=== PATIENT | female | born 1935 | race Caucasian/White ===

== ENCOUNTER → 2016-11-14 | Outpatient (CLI) | payer BC, MEDICARE, OTHER ==
[~2016-11-14] MED LIST: LEVOXYL; PRLSR20
[2016-11-14 12:57] LABS: BASO % 0.6 %; BASO ABS # 0.03 K/uL (0-0.2); COMPLETE YES; EOS % 4.6 %; ESTIMATED AVERAGE GLUCOSE 123 mg/dl; HA1C FLAG Normal (Normal); HEMATOCRIT 43.3 % (37-47); LYMPH % 28.5 %; LYMPH ABS # 1.54 K/uL (1.2-3.4); MEAN CELL VOLUME 98.2 fL (80-100); MEAN CORPUSCULAR HEMOGLOBIN 32.4 pg (25-34); MEAN PLATELET VOLUME 10.3 fL (7.4-10.4); NEUT % 56.3 %; PLATELET COUNT 241 K/uL (130-400); RED BLOOD COUNT 4.41 M/uL (4.2-5.4)
[2016-11-14 13:06] LABS: ALT/SGPT 23 U/L (12-78); BLOOD UREA NITROGEN 12 mg/dl (7-18); BUN/CREATININE RATIO 12.2 (10-20); CARBON DIOXIDE 28 mmol/L (21-32); CHLORIDE 105 mmol/L (98-107); CHOLESTEROL 134 mg/dl (0-200); CREATININE 0.94 mg/dl (0.60-1.20); GLUCOSE 97 mg/dl (70-99); POTASSIUM 4.1 mmol/L (3.5-5.1); SODIUM 141 mmol/L (136-145)
[2016-11-14 13:17] LABS: ALB/GLOB RATIO 0.8 (0.9-2); ALKALINE PHOSPHATASE 105 U/L (45-117); AST/SGOT 20 U/L (15-37); CHOLESTEROL/HDL RATIO 2.4; HDL CHOLESTEROL 57 mg/dl; LDL CHOLESTEROL CALCULATED 57 mg/dl; THYROID STIMULATING HORMONE 0.534 uIu/ml (0.300-4.500); TRIGLYCERIDES 98 mg/dl (0-150); VERY LOW DENSITY LIPOPROT CALC 20 mg/dl
[2016-11-14 13:23] LABS: CALCIUM 9.1 mg/dl (8.5-10.1)
--- NOTE | 2016-11-20 08:56 | CODING QUERY MEDICAL NECESSITY ---
CQSUPPORTING DIAGNOSIS NEEDED A supporting diagnosis is required for the test/procedure performed on this patient in order for us to be reimbursed by the patient's insurance. Please provide a supporting diagnosis for the following test/procedure listed below next to the test name along with your signature. *If there is no additional diagnosis for this patient that would support the following test/procedure please document that below next to the test/procedure. Test(s)/Procedure(s) that require a supporting diagnosis: DOS 11/14/16 GLYCATED HEMOGLOBIN TEST Provider Signature: Date: Thank you Yael Heard Health Information Management Once completed, please kindly fax back to [phone] For questions please call [phone]
== END | disposition home or self-care (01) ==
LOC: C.LABPBG 07:46
PROVIDERS: ATTEND Internal Medicine
DX: E03.9 Hypothyroidism, unspecified (principal); E11.9 Type 2 diabetes mellitus without complications

== ENCOUNTER → 2018-02-20 | Emergency (ER) | payer BC | LOC: EDUNIT# 15:47 → C.EDB 15:49 ==

== ENCOUNTER 2022-05-01 14:15 | Inpatient (IN) ==
[2022-05-01] MEDS ORDERED: HALOPERIDOL LACTATE 5 MG/ML 1 ML VIAL IM STA (14:54)
[2022-05-01] MEDS ORDERED: LORazepam 1 MG/1 ML SYR IV STA (14:54)
[2022-05-01] MEDS ORDERED: SODIUM CHLORIDE 0.9% 500 ML IV SCH (15:00)
--- NOTE | 2022-05-01 15:00 | Emergency Department Note ---
General (ED) Blank Date of Service May 01, 2022 ED Visit Note I personally performed a history and examined the patient in conjunction with Dr. Smith. Additional information regarding the history, physical, assessment, and plan were discussed with supervising attending physician and are noted in their ED visit note. Resident Activity Tracking Resident Involvement: Resident Care Provided Care Provided: Adult ED
--- NOTE | 2022-05-01 15:09 | Emergency Department Note ---
Impression & Plan Acute alteration in mental status, Agitation, Edema, peripheral, Venous stasis dermatitis ED Provider Note NAME: VALARIE JACKSON AGE: 86 SEX: F : 1935 ARRIVES VIA: Ambulance INFORMANT: Patient, EMS, the patient's ED PROVIDER(S): Go Smith DO CHIEF COMPLAINT: Altered mental status HPI: The patient is an 86-year-old female who presented to the emergency department with her by ambulance. The patient has a history of underlying dementia but also has a history of depression and diabetes. The patient had a fall 2 weeks ago where she suffered an injury to her left ribs. She also hurt her left hip. She was discharged to home and has not been doing well since. Her is noticing that she has been having worsening confusion and becomes very combative at times. She is also been having a lot of swelling in her lower extremities as well as redness. The patient is not been seen by the primary care physician. The patient has not noted to have any nausea vomiting. The patient has not come planing of headache but has been complaining of left-sided hip pain as well as left-sided chest pain from the rib fracture. The patient's significant other has been giving the patient her medications and she is been compliant with her outpatient medications. There is been no new fall at this time according to the . She denies having any neck pain. There has been no reported black or bloody bowel moods. ROS: See above HPI for pertinent positives & negatives. A total of 10 systems reviewed and were otherwise negative. PAST MEDICAL HISTORY: See Below PAST SURGICAL HISTORY: See Below FAMILY HISTORY: See Below SOCIAL HISTORY: See Below HOME MEDICATIONS: See Below ALLERGIES: See Below VITALS: See Below PHYSICAL EXAMINATION: GENERAL: The patient is awake and very combative. She is yelling at the nurses. EYES: The conjunctivae are clear. The pupils are round and reactive. EARS, NOSE, MOUTH AND THROAT: The nose is without any evidence of any deformity. Mucous membranes are moist. Tongue is midline. NECK: The neck is nontender and supple. RESPIRATORY: Normal respiratory effort is noted there is no evidence of wheezing rhonchi or rales CARDIOVASCULAR: Regular rate and rhythm noted there no murmurs rubs or gallops normal S1 normal S2. GASTROINTESTINAL: The abdomen is soft. Abdomen is nontender. MUSCULOSKELETAL/EXTREMITIES: There is no evidence of gross deformity full range of motion is noted in the hips and shoulders. SKIN: There is bilateral lower extremity swelling noted. There is erythema and venous stasis changes to both legs. NEUROLOGIC: Patient is awake alert and oriented to person. She recognizes her spouse. She is moving all extremities well. She is not oriented to place or time. MEDICAL DECISION MAKING: The patient is an 86-year-old female who presented to the emergency department with her significant other for an evaluation of altered mental status. The patient does have a history of underlying dementia but recently has been having agitation and more confusion than usual. She is also become very combative. The patient was treated with medication to help with anxiety while she was in the emergency department. I discussed the patient's laboratory and radiographic studies with her as well as her significant other. Ultimately I do not feel the patient's significant other would be able to care for her at home at this current condition. The lower extremity swelling is likely secondary to decreased activity. Her case was discussed with the on-call [facility] hospitalist group. They have agreed to evaluate the patient in the emergency department for further management and disposition. Triage Nursing notes reviewed. Prior medical records reviewed Vital Signs: reviewed and remarkable for hypotension. Differential diagnosis: Infection, hypoglycemia, electrolyte abnormalities, overdose, toxicologic, cardiac sources, intracerebral event, neurologic, trauma, as well as other pathologies. ER treatment provided: See below Diagnostics interpreted by me: ECG: EKG was obtained in the emergency department. My interpretation is normal sinus rhythm at 72 bpm. There was no ectopy. There is no acute ST segment abnormalities noted. This was compared to a tracing from March 10, 2006. No changes were noted. Cardiac Monitoring: An order was placed for continuous cardiac monitoring. The monitor shows a rate of 77 bpm with sinus rhythm. Laboratory studies: As stated above and show below. Imaging studies: See below Consultation(s): I discussed this case with Dr. Beck who is on-call for the [facility]ist group. Past Med/Surg History Medical History Alzheimer's dementia Deafness in left ear Depression Diabetes mellitus Hiatal hernia Hyperlipidemia Hypothyroidism Surgical History No history of previous surgery Family History Unknown Diabetes Obstructive sleep apnea Mother Heart disease Coronary heart disease Sister Dementia Denies family history of Ovarian cancer Prostate cancer Myocardial infarction Breast cancer Lung cancer Colorectal cancer Social History Smoking Status: Unknown if ever smoked Hx Alcohol Use: No Hx Substance Use: No Preferred Language: [place] Visual Impairment: Limited Hearing Ability: Hard of Hearing Beliefs That Will Affect Care: None marital status: Current Living Situation: Spouse current occupational status: retired Feels Safe at Home: Yes Childhood Exposure to Second-Hand Smoke: No Diet Comment: regular caffeine: Yes Dental Care, Regularly: Yes Physical Activity Frequency: Does not Exercise Seatbelt Use: always Sunscreen Use: Yes Allergies Allergies Allergy/AdvReac Type Severity Reaction Status Date / Time No Known Drug Allergies Allergy Unknown Verified 05/01/22 17:39 Home Meds Home Medications Medication Instructions Recorded Confirmed cholecalciferol (vitamin D3) 25 1,000 unit PO DAILY 11/18/18 05/01/22 mcg (1,000 unit) tablet calcium carbonate 600 mg calcium 1,500 mg PO DAILY 04/01/19 05/01/22 (1,500 mg) tablet nystatin 100,000 unit/gram topical 1 applic topical BID PRN Other 04/02/21 05/01/22 powder (Nystop) donepezil 10 mg tablet 10 mg PO HS 05/01/22 05/01/22 multivitamin 1 tab PO DAILY 05/01/22 05/01/22 Previous Rx's Medication Instructions Recorded atorvastatin 20 mg tablet 20 mg PO DAILY #90 tabs 11/21/21 levothyroxine 88 mcg tablet 88 mcg PO DAILY #90 tabs 11/21/21 citalopram 40 mg tablet 40 mg PO DAILY #90 tabs 02/10/22 lorazepam 0.5 mg tablet 0.5 mg PO DAILY PRN anxiety #90 02/19/22 tabs metformin 500 mg tablet,extended 500 mg PO 3XWK #90 tabs 04/17/22 release 24 hr tramadol 50 mg tablet (Ultram) 50 mg PO Q6H PRN pain #30 tabs 05/01/22 Results & Data (ED) Vital Signs Vital Signs - 24 hr 05/01/22 14:04 10/27/22 14:54 05/01/22 14:52 Temperature 36.4 C L Temperature Source Oral Pulse Rate 72 110 H 74 Pulse Rate from SpO2 Sensor 73 Pulse Rhythm Regular Pulse Strength Normal Respiratory Rate 20 22 12 Respiratory Effort / Characteristics Non-Labored Respiratory Depth Normal Respiratory Pattern Regular Blood Pressure 134/49 L Blood Pressure Mean 77 Blood Pressure Position Lying Pulse Oximetry 95 98 92 Oxygen Delivery Method Room Air Room Air Sepsis Recent Fever Within 48 Hours No Sepsis New/Unexplained Change in Mental Status Yes Sepsis Action Taken by Nursing No Action Required 05/01/22 15:00 05/01/22 15:01 05/01/22 15:01 Temperature Temperature Source Pulse Rate 70 84 Pulse Rate from SpO2 Sensor Pulse Rhythm Pulse Strength Respiratory Rate 14 17 Respiratory Effort / Characteristics Respiratory Depth Respiratory Pattern Blood Pressure 135/68 Blood Pressure Mean 90 Blood Pressure Position Pulse Oximetry Oxygen Delivery Method Sepsis Recent Fever Within 48 Hours Sepsis New/Unexplained Change in Mental Status Sepsis Action Taken by Nursing 05/01/22 15:30 05/01/22 16:00 05/01/22 16:01 Temperature Temperature Source Pulse Rate 76 76 77 Pulse Rate from SpO2 Sensor 75 75 Pulse Rhythm Pulse Strength Respiratory Rate 14 14 22 Respiratory Effort / Characteristics Respiratory Depth Respiratory Pattern Blood Pressure Blood Pressure Mean Blood Pressure Position Pulse Oximetry 92 92 Oxygen Delivery Method Sepsis Recent Fever Within 48 Hours Sepsis New/Unexplained Change in Mental Status Sepsis Action Taken by Nursing 05/01/22 16:01 Temperature Temperature Source Pulse Rate Pulse Rate from SpO2 Sensor Pulse Rhythm Pulse Strength Respiratory Rate Respiratory Effort / Characteristics Respiratory Depth Respiratory Pattern Blood Pressure 100/59 L Blood Pressure Mean 72 Blood Pressure Position Pulse Oximetry Oxygen Delivery Method Sepsis Recent Fever Within 48 Hours Sepsis New/Unexplained Change in Mental Status Sepsis Action Taken by [facility] Medications Current Medication List: was personally reviewed by me Laboratory Data Attestation: I reviewed the patient's lab results. Result diagrams: 05/01/22 15:22 05/01/22 15:22 Lab Results 05/01/22 05/01/22 05/01/22 Range/Units 14:45 15:22 15:22 WBC 6.04 (4.8-10.8) K/ul RBC 3.64 L (3.93-5.22) M/uL Hgb 11.7 L (12.0-16.0) g/dl Hct 35.5 (34.1-44.9) % MCV 97.5 (80.0-100.0) fL MCH 32.1 (25.0-34.0) pg MCHC 33.0 (32.0-36.0) g/dL RDW Std Deviation 50.3 H (36.4-46.3) fL RDW Coeff of Tom 14.0 (11.5-14.5) % Plt Count 195 (130-400) K/uL MPV 9.1 L (9.4-12.3) fL Immature Gran % (Auto) 0.2 % Neut % (Auto) 65.3 % Lymph % (Auto) 21.2 % [place] % (Auto) 10.3 % Eos % (Auto) 2.3 % Baso % (Auto) 0.7 % Neut # (Auto) 3.95 (1.4-6.5) K/uL Lymph # (Auto) 1.28 (1.2-3.4) K/uL [place] # (Auto) 0.62 (0.24-0.82) K/uL Eos # (Auto) 0.14 (0-0.50) K/uL Baso # (Auto) 0.04 (0-0.2) K/uL Immature Gran # (Auto) 0.01 (0.00-0.02) K/uL PT 11.1 (9.0-12.0) Seconds INR 1.0 (0.9-1.1) APTT 26.5 (21.0-31.0) Seconds PTT Ratio 1.0 Sodium (136-145) mmol/L Potassium (3.5-5.1) mmol/L Chloride (98-107) mmol/L Carbon Dioxide (21-32) mmol/L Anion Gap (3-11) BUN (6-23) mg/dl Creatinine (0.6-1.2) mg/dl Est Cr Clr Drug Dosing ml/min Est GFR ( Amer) ml/min Est GFR (Non-Af Amer) ml/min BUN/Creatinine Ratio (10-20) Glucose (70-99(Fasting)) mg/dl Calcium (8.5-10.1) mg/dl Magnesium (1.7-2.4) mg/dl Total Bilirubin (0.2-1.0) mg/dl AST (13-39) U/L ALT (7-52) U/L Alkaline Phosphatase (34-104) U/L Total Creatine Kinase (26-192) U/L Troponin I High Sens (0-14) pg/ml B-Natriuretic Peptide (0-100) pg/ml Total Protein (6.0-8.3) gm/dl Albumin (3.4-5.0) gm/dl Globulin (2.5-4.0) gm/dl Albumin/Globulin Ratio (0.9-2) TSH (0.300-4.500) uIu/ml Free T4 (0.61-1.60) ng/dl Urine Color Yellow Urine Appearance Clear (Clear) Urine pH 7.5 (4.5-7.5) Ur Specific [place] 1.023 (1.000-1.030) Urine Protein Negative (Negative) Urine Glucose (UA) 1+ H (Negative) Urine Ketones Negative (Negative) Urine Blood Negative (Negative) Urine Nitrite Negative (Negative) Urine Bilirubin Negative (Negative) Urine Urobilinogen Negative (Negative) Ur Leukocyte Esterase Negative (Negative) SARS-CoV-2, RNA, NAAT (NEGATIVE) 05/01/22 05/01/22 05/01/22 Range/Units 15:22 15:22 15:22 WBC (4.8-10.8) K/ul RBC (3.93-5.22) M/uL Hgb (12.0-16.0) g/dl Hct (34.1-44.9) % MCV (80.0-100.0) fL MCH (25.0-34.0) pg MCHC (32.0-36.0) g/dL RDW Std Deviation (36.4-46.3) fL RDW Coeff of Tom (11.5-14.5) % Plt Count (130-400) K/uL MPV (9.4-12.3) fL Immature Gran % (Auto) % Neut % (Auto) % Lymph % (Auto) % [place] % (Auto) % Eos % (Auto) % Baso % (Auto) % Neut # (Auto) (1.4-6.5) K/uL Lymph # (Auto) (1.2-3.4) K/uL [place] # (Auto) (0.24-0.82) K/uL Eos # (Auto) (0-0.50) K/uL Baso # (Auto) (0-0.2) K/uL Immature Gran # (Auto) (0.00-0.02) K/uL PT (9.0-12.0) Seconds INR (0.9-1.1) APTT (21.0-31.0) Seconds PTT Ratio Sodium 138 (136-145) mmol/L Potassium 4.1 (3.5-5.1) mmol/L Chloride 102 (98-107) mmol/L Carbon Dioxide 32 (21-32) mmol/L Anion Gap 4 (3-11) BUN 10 (6-23) mg/dl Creatinine 0.91 (0.6-1.2) mg/dl Est Cr Clr Drug Dosing 53.3 ml/min Est GFR ( Amer) 67.1 ml/min Est GFR (Non-Af Amer) 57.9 ml/min BUN/Creatinine Ratio 11.0 (10-20) Glucose 82 (70-99(Fasting)) mg/dl Calcium 8.6 (8.5-10.1) mg/dl Magnesium 2.1 (1.7-2.4) mg/dl Total Bilirubin 0.5 (0.2-1.0) mg/dl AST 16 (13-39) U/L ALT 12 (7-52) U/L Alkaline Phosphatase 120 H (34-104) U/L Total Creatine Kinase 59 (26-192) U/L Troponin I High Sens 5.1 (0-14) pg/ml B-Natriuretic Peptide 46 (0-100) pg/ml Total Protein 6.5 (6.0-8.3) gm/dl Albumin 3.3 L (3.4-5.0) gm/dl Globulin 3.2 (2.5-4.0) gm/dl Albumin/Globulin Ratio 1.0 (0.9-2) TSH 7.114 H (0.300-4.500) uIu/ml Free T4 0.81 (0.61-1.60) ng/dl Urine Color Urine Appearance (Clear) Urine pH (4.5-7.5) Ur Specific [place] (1.000-1.030) Urine Protein (Negative) Urine Glucose (UA) (Negative) Urine Ketones (Negative) Urine Blood (Negative) Urine Nitrite (Negative) Urine Bilirubin (Negative) Urine Urobilinogen (Negative) Ur Leukocyte Esterase (Negative) SARS-CoV-2, RNA, NAAT (NEGATIVE) 05/01/22 Range/Units Unknown WBC (4.8-10.8) K/ul RBC (3.93-5.22) M/uL Hgb (12.0-16.0) g/dl Hct (34.1-44.9) % MCV (80.0-100.0) fL MCH (25.0-34.0) pg MCHC (32.0-36.0) g/dL RDW Std Deviation (36.4-46.3) fL RDW Coeff of Tom (11.5-14.5) % Plt Count (130-400) K/uL MPV (9.4-12.3) fL Immature Gran % (Auto) % Neut % (Auto) % Lymph % (Auto) % [place] % (Auto) % Eos % (Auto) % Baso % (Auto) % Neut # (Auto) (1.4-6.5) K/uL Lymph # (Auto) (1.2-3.4) K/uL [place] # (Auto) (0.24-0.82) K/uL Eos # (Auto) (0-0.50) K/uL Baso # (Auto) (0-0.2) K/uL Immature Gran # (Auto) (0.00-0.02) K/uL PT (9.0-12.0) Seconds INR (0.9-1.1) APTT (21.0-31.0) Seconds PTT Ratio Sodium (136-145) mmol/L Potassium (3.5-5.1) mmol/L Chloride (98-107) mmol/L Carbon Dioxide (21-32) mmol/L Anion Gap (3-11) BUN (6-23) mg/dl Creatinine (0.6-1.2) mg/dl Est Cr Clr Drug Dosing ml/min Est GFR ( Amer) ml/min Est GFR (Non-Af Amer) ml/min BUN/Creatinine Ratio (10-20) Glucose (70-99(Fasting)) mg/dl Calcium (8.5-10.1) mg/dl Magnesium (1.7-2.4) mg/dl Total Bilirubin (0.2-1.0) mg/dl AST (13-39) U/L ALT (7-52) U/L Alkaline Phosphatase (34-104) U/L Total Creatine Kinase (26-192) U/L Troponin I High Sens (0-14) pg/ml B-Natriuretic Peptide (0-100) pg/ml Total Protein (6.0-8.3) gm/dl Albumin (3.4-5.0) gm/dl Globulin (2.5-4.0) gm/dl Albumin/Globulin Ratio (0.9-2) TSH (0.300-4.500) uIu/ml Free T4 (0.61-1.60) ng/dl Urine Color Urine Appearance (Clear) Urine pH (4.5-7.5) Ur Specific [place] (1.000-1.030) Urine Protein (Negative) Urine Glucose (UA) (Negative) Urine Ketones (Negative) Urine Blood (Negative) Urine Nitrite (Negative) Urine Bilirubin (Negative) Urine Urobilinogen (Negative) Ur Leukocyte Esterase (Negative) SARS-CoV-2, RNA, NAAT NEGATIVE (NEGATIVE) Administered Medications Discontinued Medications Haloperidol Lactate (Haloperidol Lactate 5 Mg/Ml 1 Ml Vial) 5 mg IM NOW STA Stop: 05/01/22 14:55 Last Admin: 05/01/22 15:27 Dose: 5 mg Documented By: SAY Haloperidol Lactate (Haloperidol Lactate 5 Mg/Ml 1 Ml Vial) Confirm Administered Dose 5 mg .ROUTE .STK-MED ONE Stop: 05/01/22 17:42 Last Admin: 05/01/22 17:43 Dose: 5 mg Documented By: JOSE FRANCISCO Sodium Chloride (Nss) 500 mls @ 999 mls/hr IV .Q31M VERONICA Stop: 05/01/22 15:30 Last Infusion: 05/01/22 16:37 Dose: 0 mls/hr Documented By: Admin: 05/01/22 15:25 Dose: 999 mls/hr Documented By: SAY Lorazepam (Lorazepam 2 Mg/2 Ml Syr) 0.5 mg IV NOW STA; Protocol Stop: 05/01/22 14:55 Last Admin: 05/01/22 15:24 Dose: 0.5 mg Documented By: SAY Lorazepam (Lorazepam 2 Mg/2 Ml Syr) Confirm Administered Dose 2 mg .ROUTE .[employer]- MED ONE Stop: 05/01/22 17:42 Last Admin: 05/01/22 17:42 Dose: 1 mg Documented By: JOSE FRANCISCO Imaging Data Radiologist's Impression: Cervical Spine CT 05/01/22 14:54 CT cervical spine wo con CT DOSE: 1047.80 mGy.cm CLINICAL HISTORY: 86 years-old Female with fall. Acute head and neck injury status post fall COMPARISON: Head CT of same day TECHNIQUE: Multiple axial CT images of the cervical spine were obtained without contrast. A dose lowering technique was utilized adhering to the principles of ALARA. FINDINGS: 3 mm anterolisthesis C7 on T1, likely degenerative. No acute fracture or subluxation identified. Elongated bilateral styloid processes, left greater than right. Minimal air within the posterior lateral tissues of the upper thoracic spine may be related to the degenerative changes. The cervical soft tissues appear unremarkable. Calcified plaque of the carotid arteries. Calcifications of the parotid glands. The visualized lung apices appear clear. IMPRESSION: No acute cervical spine fracture or subluxation is identified. ACT 112: Negative or not required by law. The above report was generated using voice recognition software. It may contain grammatical, syntax or spelling errors. Electronically signed by: Arnold Sullivan M.D. 05/01/2022 4:40 PM Chest X-Ray 05/01/22 14:54 XR chest 1V not portable HISTORY: 86 years-old Female weakness acute chest trauma status post fall COMPARISON: Chest and rib radiographs 04/21/2022 TECHNIQUE: AP view of the chest FINDINGS: Cardiac silhouette is enlarged. Unchanged with opacity along the left heart border suggestive of a prominent epicardial fat pad. Moderate sized hiatal hernia. Atherosclerosis of the aorta. No pneumothorax, large pleural effusion, overt pulmonary edema or airspace consolidation typical for pneumonia. Degenerative changes of the shoulders and spine. Cholecystectomy. Healed fractures of the lateral left fifth through seventh ribs redemonstrated. IMPRESSION: 1. Cardiomegaly without acute process. 2. Acute fractures of the left fifth through seventh ribs again noted. No pneumothorax. ACT 112: Negative or not required by law. The above report was generated using voice recognition software. It may contain grammatical, syntax or spelling errors. Electronically signed by: Arnold Sullivan M.D. 05/01/2022 5:[address] 05/01/22 14:54 CT SCAN OF THE BRAIN WITHOUT IV CONTRAST CLINICAL HISTORY: Change in mental status. COMPARISON STUDY: No priors. TECHNIQUE: Unenhanced axial CT scan of the brain is performed from the vertex to the skull base. A dose lowering technique was utilized adhering to the principles of ALARA. FINDINGS: Brain parenchyma: There is age-related involutional change noting advanced subcortical and periventricular microangiopathic disease. There is no hemorrhage, mass effect, or evidence of acute territorial ischemia by CT criteria. 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 Jimenes-white matter differentiation is preserved. No extra-axial fluid collection is seen. Ventricles, sulci, cisterns: Prominent secondary to involutional change. Intracranial vasculature: There is atherosclerotic calcification of the cavernous carotid and vertebral arteries. Calvarium: Unremarkable. Sinuses and mastoids: There is trace mucosal thickening within the right maxillary antrum. The remaining paranasal sinuses are clear. The mastoid air cells are well pneumatized. Orbits: The bony orbits are grossly intact. IMPRESSION: There is no hemorrhage, mass effect, or evidence of acute territorial ischemia by CT criteria. ACT 112: Negative or not required by law. Electronically signed by: Cisco Allen M.D. 05/01/2022 4:27 PM Hip/Pelvis X-Ray 05/01/22 14:54 SINGLE VIEW PELVIS; 2 VIEWS LEFT HIP CLINICAL HISTORY: Fall with left hip pain. FINDINGS: An AP view of the pelvis with AP and frog-leg views of the left hip are compared to study dated 04/21/2022. The skeletal structures are osteopenic. There is no radiographic evidence of acute fracture involving the hips or bony pelvis. Mild degenerative joint space narrowing is noted in both hips. Degenerative sclerosis is seen in the sacroiliac joints. The overlying soft tissues are within normal limits. Phleboliths are seen in the pelvis. Lumbosacral spondylosis is partially visualized. IMPRESSION: No acute bony abnormality is identified. No change from 04/21/2022. Electronically signed by: Cisco Allen M.D. 05/01/2022 4:46 PM Discharge Plan Visit Data Chief Complaint: Fall ED Provider: Luis,Go R ED Midlevel Provider: Bismark Cervantes Discharge Problem: Acute alteration in mental status, Agitation, Edema, peripheral, Venous stasis dermatitis Patient Disposition: Being Evaluated by Hospitalist Forms Stand Alone Forms: My [facility] Prescriptions Prescriptions: No Action atorvastatin 20 mg tablet 20 mg PO DAILY Qty: 90 3RF levothyroxine 88 mcg tablet 88 mcg PO DAILY Qty: 90 3RF citalopram 40 mg tablet 40 mg PO DAILY Qty: 90 3RF lorazepam 0.5 mg tablet 0.5 mg PO DAILY PRN (Reason: anxiety) Qty: 90 0RF metformin 500 mg tablet extended release 24 hr 500 mg PO 3XWK Qty: 90 3RF tramadol [Ultram] 50 mg tablet 50 mg PO Q6H PRN (Reason: pain) Qty: 30 0RF nystatin [Nystop] 100,000 unit/gram powder 1 applic TOP BID PRN (Reason: Other) cholecalciferol (vitamin D3) 1,000 unit tablet 1,000 unit PO DAILY calcium carbonate 600 mg calcium (1,500 mg) tablet 1,500 mg PO DAILY donepezil 10 mg tablet 10 mg PO HS Rx Instructions: TAKE 1 TABLET BY MOUTH DAILY multivitamin Tablet 1 tab PO DAILY Referrals Referrals: Marcos Richardson MD [Primary Care Provider] -
[2022-05-01 15:13] LABS: Appearance Urine Clear (Clear); Bilirubin Urine Negative (Negative); Blood Urine Negative (Negative); Color Urine Yellow; Glucose Urine UA 1+ (Negative); Ketones Urine Negative (Negative); Leukocyte Esterase Urine Negative (Negative); Nitrite Urine Negative (Negative); Protein Urine Negative (Negative); Specific Gravity Urine 1.023 (1.000-1.030); Urobilinogen Urine Negative (Negative); pH Urine 7.5 (4.5-7.5)
[2022-05-01 15:33] LABS: Basophils # (auto) 0.04 K/uL (0-0.2); Basophils % (auto) 0.7 %; Eosinophils # (auto) 0.14 K/uL (0-0.50); Eosinophils % (auto) 2.3 %; Hematocrit (blood only) 35.5 % (34.1-44.9); Hemoglobin 11.7 g/dl (12.0-16.0); Immature Granulocytes # (auto) 0.01 K/uL (0.00-0.02); Immature Granulocytes % (auto) 0.2 %; Lymphocytes # (auto) 1.28 K/uL (1.2-3.4); Lymphocytes % (auto) 21.2 %; Mean Corpuscular Hemoglobin 32.1 pg (25.0-34.0); Mean Corpuscular Volume 97.5 fL (80.0-100.0); Mean Platelet Volume 9.1 fL (9.4-12.3); Monocytes # (auto) 0.62 K/uL (0.24-0.82); Monocytes % (auto) 10.3 %; Neutrophils # (auto) 3.95 K/uL (1.4-6.5); Neutrophils % (auto) 65.3 %; Platelet Count 195 K/uL (130-400); RDW Standard Deviation 50.3 fL (36.4-46.3); Red Blood Count 3.64 M/uL (3.93-5.22); White Blood Count 6.04 K/ul (4.8-10.8)
[2022-05-01 15:52] LABS: Partial Thromboplastin Time 26.5 Seconds (21.0-31.0); Prothrombin Time 11.1 Seconds (9.0-12.0)
[2022-05-01 15:59] LABS: Albumin Level 3.3 gm/dl (3.4-5.0); Bilirubin,Total 0.5 mg/dl (0.2-1.0); Calcium 8.6 mg/dl (8.5-10.1); Creatinine Clr Calc Pharmacy 53.3 ml/min; Est GFR (African American) 67.1 ml/min; Est GFR (Non-African American) 57.9 ml/min; Globulin 3.2 gm/dl (2.5-4.0); Magnesium 2.1 mg/dl (1.7-2.4); Potassium 4.1 mmol/L (3.5-5.1); Total Protein 6.5 gm/dl (6.0-8.3)
[2022-05-01 16:04] LABS: Troponin I High Sensitivity 5.1 pg/ml (0-14)
[2022-05-01 16:11] LABS: Thyroid Stimulating Hormone 7.114 uIu/ml (0.300-4.500)
--- NOTE | 2022-05-01 16:32 | CT Scan Report ---
CT SCAN OF THE BRAIN WITHOUT IV CONTRAST CLINICAL HISTORY: Change in mental status. COMPARISON STUDY: No priors. TECHNIQUE: Unenhanced axial CT scan of the brain is performed from the vertex to the skull base. A do se lowering technique was utilized adhering to the principles of ALARA. FINDINGS: Brain parenchyma: There is age-related involutional change noting advanced subcortical and periventri cular microangiopathic disease. There is no hemorrhage, mass effect, or evidence of acute territorial ischemia by CT criteria. 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 Jimenes-white matter di fferentiation is preserved. No extra-axial fluid collection is seen. Ventricles, sulci, cisterns: Prominent secondary to involutional change. Intracranial vasculature: There is atherosclerotic calcification of the cavernous carotid and vertebr al arteries. Calvarium: Unremarkable. Sinuses and mastoids: There is trace mucosal thickening within the right maxillary antrum. The remain ing paranasal sinuses are clear. The mastoid air cells are well pneumatized. Orbits: The bony orbits are grossly intact. IMPRESSION: There is no hemorrhage, mass effect, or evidence of acute territorial ischemia by CT rhys arce. ACT 112: Negative or not required by law. Electronically signed by: Cisco Allen M.D. 05/01/2022 4:27 PM
--- NOTE | 2022-05-01 16:41 | CT Scan Report ---
CT cervical spine wo con CT DOSE: 1047.80 mGy.cm CLINICAL HISTORY: 86 years-old Female with fall. Acute head and neck injury status post fall COMPARISON: Head CT of same day TECHNIQUE: Multiple axial CT images of the cervical spine were obtained without contrast. A dose low ering technique was utilized adhering to the principles of ALARA. FINDINGS: 3 mm anterolisthesis C7 on T1, likely degenerative. No acute fracture or subluxation identi fied. Elongated bilateral styloid processes, left greater than right. Minimal air within the posterio r lateral tissues of the upper thoracic spine may be related to the degenerative changes. The cervical soft tissues appear unremarkable. Calcified plaque of the carotid arteries. Calcificati ons of the parotid glands. The visualized lung apices appear clear. IMPRESSION: No acute cervical spine fracture or subluxation is identified. ACT 112: Negative or not required by law. The above report was generated using voice recognition software. It may contain grammatical, syntax o r spelling errors. Electronically signed by: Arnold Sullivan M.D. 05/01/2022 4:40 PM
--- NOTE | 2022-05-01 16:47 | XRay Report ---
SINGLE VIEW PELVIS; 2 VIEWS LEFT HIP CLINICAL HISTORY: Fall with left hip pain. FINDINGS: An AP view of the pelvis with AP and frog-leg views of the left hip are compared to study d ated 04/21/2022. The skeletal structures are osteopenic. There is no radiographic evidence of acute f racture involving the hips or bony pelvis. Mild degenerative joint space narrowing is noted in both h ips. Degenerative sclerosis is seen in the sacroiliac joints. The overlying soft tissues are within n ormal limits. Phleboliths are seen in the pelvis. Lumbosacral spondylosis is partially visualized. IMPRESSION: No acute bony abnormality is identified. No change from 04/21/2022. Electronically signed by: Cisco Allen M.D. 05/01/2022 4:46 PM
[2022-05-01 16:49] LABS: T4 Free Thyroxine 0.81 ng/dl (0.61-1.60)
--- NOTE | 2022-05-01 17:10 | XRay Report ---
XR chest 1V not portable HISTORY: 86 years-old Female weakness acute chest trauma status post fall COMPARISON: Chest and rib radiographs 04/21/2022 TECHNIQUE: AP view of the chest FINDINGS: Cardiac silhouette is enlarged. Unchanged with opacity along the left heart border suggestive of a pr ominent epicardial fat pad. Moderate sized hiatal hernia. Atherosclerosis of the aorta. No pneumothor ax, large pleural effusion, overt pulmonary edema or airspace consolidation typical for pneumonia. De generative changes of the shoulders and spine. Cholecystectomy. Healed fractures of the lateral left fifth through seventh ribs redemonstrated. IMPRESSION: 1. Cardiomegaly without acute process. 2. Acute fractures of the left fifth through seventh ribs again noted. No pneumothorax. ACT 112: Negative or not required by law. The above report was generated using voice recognition software. It may contain grammatical, syntax o r spelling errors. Electronically signed by: Arnold Sullivan M.D. 05/01/2022 5:08 PM
--- NOTE | 2022-05-01 17:23 | History & Physical Report ---
Date of Service May 01, 2022 Assessment & Plan (1) Alzheimer's dementia: Plan: - Continue donepezil. - PT/OT will evaluate patient. - Case management consulted on admission for placement. - 11 sitter ordered. - Melatonin scheduled at night. - 1 mg Ativan Q6h prn for behavioral issues. -Patient require multiple doses of Haldol and Ativan in ED due to impulsive behavior. (2) Left rib fracture: Plan: - Left ribs 5 through 7 fractures 10 days ago, seen again on imaging without evidence of pneumothorax. - Pain control: Tylenol, tramadol, heat, lidocaine patches. - Incentive spirometry every few hours at least if patient cooperative. (3) Depression: Plan: - Continue citalopram. (4) Diabetes mellitus: Plan: - Takes metformin 3x weekly, will hold while admitted and defer on Accu- Cheks/SSI as her presenting sugar was 84 and frequent glucose checks may agitate patient. (5) Hypothyroidism: Plan: - Continue levothyroxine. (6) Lower extremity edema: Plan: - b/l LE edema, reports it is new over the past week or so. - Will start on low dose Lasix to see if this improves. - Echo in AM. - BNP 46. Plan - Admit to med/surg. - SCDs, Lovenox for VTE ppx. - Full Code. History of Present Illness Chief Complaint: confusion, combative behavior at home x 1 week Primary Care Provider: Marcos Richardson MD Michelle Pino is an 86-year-old female with a past medical history significant for dementia, hypothyroidism, depression, and diabetes is presenting today with her due to worsening mental status. She had a fall 10 days ago on 04/21 and was evaluated in our ED then. Imaging was notable for 6, 7, possibly eighth rib fracture on the left side, no pneumothorax. No other injuries and labs were stable, therefore patient was discharged home with tramadol for pain control. Since then she has been increasingly confused and combative, and feels that he can no longer care for her. There have been no new falls and patient is not complaining of any head or neck pain, fever/chills, chest pain, palpitations, shortness of breath, abdominal, nausea, vomiting. No history os able to be obtained as patient is severely confused, per has been her baseline recently. Upon presentation to the ED, her vital signs have been within normal limits and stable, BP on lower side. She has anemia of 11.7 which appears new from otherwise labs unremarkable, renal function at baseline, without electrolyte abnormalities or evidence of infection. TSH elevated at 7, however free T4 within normal limits. Urine does not appear infected, and she is negative for COVID. C-spine and head CT, as well as CXR and hip/pelvis x-ray obtained which were all unremarkable for acute fractures, subluxation or other acute process. Left rib fractures 5 through 7 are again noted, without pneumothorax. Allergies Allergy/AdvReac Type Severity Reaction Status Date / Time No Known Drug Allergies Allergy Unknown Verified 05/01/22 17:39 Home Medications Medication Instructions Recorded Confirmed Type cholecalciferol (vitamin D3) 25 1,000 unit PO DAILY 11/18/18 05/01/22 History mcg (1,000 unit) tablet calcium carbonate 600 mg calcium 1,500 mg PO DAILY 04/01/19 05/01/22 History (1,500 mg) tablet nystatin 100,000 unit/gram topical 1 applic topical BID PRN Other 04/02/21 05/01/22 History powder (Nystop) atorvastatin 20 mg tablet 20 mg PO DAILY #90 tabs 11/21/21 05/01/22 Rx levothyroxine 88 mcg tablet 88 mcg PO DAILY #90 tabs 11/21/21 05/01/22 Rx citalopram 40 mg tablet 40 mg PO DAILY #90 tabs 02/10/22 05/01/22 Rx lorazepam 0.5 mg tablet 0.5 mg PO DAILY PRN anxiety #90 02/19/22 05/01/22 Rx tabs metformin 500 mg tablet,extended 500 mg PO 3XWK #90 tabs 04/17/22 05/01/22 Rx release 24 hr donepezil 10 mg tablet 10 mg PO HS 05/01/22 05/01/22 History multivitamin 1 tab PO DAILY 05/01/22 05/01/22 History tramadol 50 mg tablet (Ultram) 50 mg PO Q6H PRN pain #30 tabs 05/01/22 Rx Past Med/Surg History Medical History Alzheimer's dementia Deafness in left ear Depression Diabetes mellitus Hiatal hernia Hyperlipidemia Hypothyroidism Surgical History No history of previous surgery Family History Unknown Diabetes Obstructive sleep apnea Mother Heart disease Coronary heart disease Sister Dementia Denies family history of Ovarian cancer Prostate cancer Myocardial infarction Breast cancer Lung cancer Colorectal cancer Social History Smoking Status: Unknown if ever smoked Preferred Language: Czech Communication Ability: Impaired Communication Ability Comment: pt conused Visual Impairment: Limited Hearing Ability: Hard of Hearing 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 Beliefs That Will Affect Care: None marital status: Current Living Situation: Spouse current occupational status: retired Feels Safe at Home: Yes Childhood Exposure to Second-Hand Smoke: No Diet Comment: regular caffeine: Yes Dental Care, Regularly: Yes Physical Activity Frequency: Does not Exercise Seatbelt Use: always Sunscreen Use: Yes Assistive Devices: None Review of Systems Review of Systems: Unobtainable due to cognitive status Physical Exam Physical Exam: General: awake, alert, confused, agitated, pulling at all lines trying to get out of bed Head: Normocephalic, atraumatic ENT: PERRL, EOMI, no pharyngeal exudate, mucous membranes moist Chest: Clear to auscultation, on room air, no adventitious breath sounds Cardiac: Regular rate and rhythm, no murmur, no JVD, normal peripheral pulses, good capillary refill Abdominal: NABS x 4 quadrants, soft, nontender to palpation, no rebound, guarding or tenderness Extremities: Bilateral feet and legs up to mid calf are erythematous and edematous Psych: Agitated, tearful Neuro: AAO x self only, strength intact bilaterally and rated 5/5, no motor deficits, speech is clear, no peripheral sensory deficits Skin: no rash or erythema Results & Data Results & [facility] ([facility]) Vital Signs (Past 12 Hours) Vital Signs Temp Pulse Resp BP Pulse Ox O2 Del Method 05/01/22 16:01 100/59 L 05/01/22 16:01 77 22 92 05/01/22 16:00 76 14 92 05/01/22 15:30 76 14 05/01/22 15:01 84 17 05/01/22 15:01 135/68 05/01/22 15:00 70 14 05/01/22 14:52 74 12 92 05/01/22 14:54 110 H 22 98 Room Air 05/01/22 14:04 36.4 C L 72 20 134/49 L 95 Room Air Laboratory Results Abnormal lab results 05/01/22 05/01/22 05/01/22 Range/Units 14:45 15:22 15:22 RBC 3.64 L (3.93-5.22) M/uL Hgb 11.7 L (12.0-16.0) g/dl RDW Std Deviation 50.3 H (36.4-46.3) fL MPV 9.1 L (9.4-12.3) fL Alkaline Phosphatase 120 H (34-104) U/L Albumin 3.3 L (3.4-5.0) gm/dl TSH (0.300-4.500) uIu/ml Urine Glucose (UA) 1+ H (Negative) 05/01/22 Range/Units 15:22 RBC (3.93-5.22) M/uL Hgb (12.0-16.0) g/dl RDW Std Deviation (36.4-46.3) fL MPV (9.4-12.3) fL Alkaline Phosphatase (34-104) U/L Albumin (3.4-5.0) gm/dl TSH 7.114 H (0.300-4.500) uIu/ml Urine Glucose (UA) (Negative) Diagnostic Findings Cervical Spine CT 05/01/22 14:54 CT cervical spine wo con CT DOSE: 1047.80 mGy.cm CLINICAL HISTORY: 86 years-old Female with fall. Acute head and neck injury status post fall COMPARISON: Head CT of same day TECHNIQUE: Multiple axial CT images of the cervical spine were obtained without contrast. A dose lowering technique was utilized adhering to the principles of ALARA. FINDINGS: 3 mm anterolisthesis C7 on T1, likely degenerative. No acute fracture or subluxation identified. Elongated bilateral styloid processes, left greater than right. Minimal air within the posterior lateral tissues of the upper thoracic spine may be related to the degenerative changes. The cervical soft tissues appear unremarkable. Calcified plaque of the carotid arteries. Calcifications of the parotid glands. The visualized lung apices appear clear. IMPRESSION: No acute cervical spine fracture or subluxation is identified. ACT 112: Negative or not required by law. The above report was generated using voice recognition software. It may contain grammatical, syntax or spelling errors. Electronically signed by: Arnold Sullivan M.D. 05/01/2022 4:40 PM Chest X-Ray 05/01/22 14:54 XR chest 1V not portable HISTORY: 86 years-old Female weakness acute chest trauma status post fall COMPARISON: Chest and rib radiographs 04/21/2022 TECHNIQUE: AP view of the chest FINDINGS: Cardiac silhouette is enlarged. Unchanged with opacity along the left heart border suggestive of a prominent epicardial fat pad. Moderate sized hiatal hernia. Atherosclerosis of the aorta. No pneumothorax, large pleural effusion, overt pulmonary edema or airspace consolidation typical for pneumonia. Degenerative changes of the shoulders and spine. Cholecystectomy. Healed fractures of the lateral left fifth through seventh ribs redemonstrated. IMPRESSION: 1. Cardiomegaly without acute process. 2. Acute fractures of the left fifth through seventh ribs again noted. No pneumothorax. ACT 112: Negative or not required by law. The above report was generated using voice recognition software. It may contain grammatical, syntax or spelling errors. Electronically signed by: Arnold Sullivan M.D. 05/01/2022 5:[address] 05/01/22 14:54 CT SCAN OF THE BRAIN WITHOUT IV CONTRAST CLINICAL HISTORY: Change in mental status. COMPARISON STUDY: No priors. TECHNIQUE: Unenhanced axial CT scan of the brain is performed from the vertex to the skull base. A dose lowering technique was utilized adhering to the principles of ALARA. FINDINGS: Brain parenchyma: There is age-related involutional change noting advanced subcortical and periventricular microangiopathic disease. There is no hemorrhage, mass effect, or evidence of acute territorial ischemia by CT criteria. 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 Jimenes-white matter differentiation is preserved. No extra-axial fluid collection is seen. Ventricles, sulci, cisterns: Prominent secondary to involutional change. Intracranial vasculature: There is atherosclerotic calcification of the cavernous carotid and vertebral arteries. Calvarium: Unremarkable. Sinuses and mastoids: There is trace mucosal thickening within the right maxill anna antrum. The remaining paranasal sinuses are clear. The mastoid air cells are well pneumatized. Orbits: The bony orbits are grossly intact. IMPRESSION: There is no hemorrhage, mass effect, or evidence of acute territorial ischemia by CT criteria. ACT 112: Negative or not required by law. Electronically signed by: Cisco Allen M.D. 05/01/2022 4:27 PM Hip/Pelvis X-Ray 05/01/22 14:54 SINGLE VIEW PELVIS; 2 VIEWS LEFT HIP CLINICAL HISTORY: Fall with left hip pain. FINDINGS: An AP view of the pelvis with AP and frog-leg views of the left hip a re compared to study dated 04/21/2022. The skeletal structures are osteopenic. There is no radiographic evidence of acute fracture involving the hips or bony pelvis. Mild degenerative joint space narrowing is noted in both hips. Degenerative sclerosis is seen in the sacroiliac joints. The overlying soft tissues are within normal limits. Phleboliths are seen in the pelvis. Lumbosacral spondylosis is partially visualized. IMPRESSION: No acute bony abnormality is identified. No change from 04/21/2022. Electronically signed by: Cisco Allen M.D. 05/01/2022 4:46 PM ECG Additional Comments: Normal sinus rhythm Normal ECG When compared with ECG of 10-MAR-2006 14:37, Nonspecific T wave abnormality now evident in Anterior leads. Code Status & VTE Plan Code Status Full Code. Supervising Physician Co-Signing Physician Notes During face to face encounter, I obtained a history of present illness and performed a physical examination. I reviewed above note and agree with it. D/W APC Cavazos and patient plan of care. Patient seen for placement given her worsening alzheimer's dementia and delirium. will monitor and recheck in AM. PG Care Time/CCT Total # of Minutes Spent Total Time Spent with Patient: Total time spent is greater than 50% in coordination of care (as documented) at patient's floor/unit and/or counseling patient: Coding Level of Care Code INT OBSERVATION CARE 70M LVL 3 Diagnoses Alzheimer's dementia G30.9; F02.80 Left rib fracture S22.32XA Depression F32.9 Diabetes mellitus E11.9 Diabetes mellitus complication status: without complication Diabetes mellitus truck terminal manager insulin use: without truck terminal manager use Diabetes mellitus type: type 2 Hypothyroidism E03.9 Hypothyroidism type: acquired Lower extremity edema R60.0 (1) Diabetes mellitus Diabetes mellitus complication status: without complication Diabetes mellitus truck terminal manager insulin use: without truck terminal manager use Diabetes mellitus type: type 2 Qualified Code(s): E11.9 - Type 2 diabetes mellitus without complications (2) Hypothyroidism Hypothyroidism type: acquired Qualified Code(s): E03.9 - Hypothyroidism, unspecified
[2022-05-01] MEDS ORDERED: LORazepam 1 MG/1 ML SYR ONE (17:41)
[2022-05-01] MEDS ORDERED: HALOPERIDOL LACTATE 5 MG/ML 1 ML VIAL ONE (17:41)
[2022-05-01] MEDS ORDERED: ALUMINUM/MAGNESIUM SUSP 30 ML UDC PO PRN (20:19)
[2022-05-01] MEDS ORDERED: NYSTATIN POWDER 15GM BTL EXT PRN (20:19)
[2022-05-01] MEDS ORDERED: traMADol HCL 50 MG TABLET PO PRN (20:19)
[2022-05-01] MEDS ORDERED: LORazepam 1 MG/1 ML SYR IV PRN (20:19)
[2022-05-01] MEDS ORDERED: ACETAMINOPHEN 325 MG TAB PO PRN (20:19)
[2022-05-01] MEDS ORDERED: ONDANSETRON INJ 2 MG/ML 2 ML VIAL IV PRN (20:19)
[2022-05-01] MEDS ORDERED: POLYETHYLENE (MIRALAX) 17 GM PACK PO PRN (20:19)
[2022-05-01] MEDS: ENOXAPARIN INJ 40 MG/0.4 ML SYR SQ SCH (22:24)
[2022-05-01] MEDS: DONEPEZIL HCL 10 MG TAB PO SCH (22:25)
[2022-05-01] MEDS: MELATONIN 3 MG TAB PO SCH (22:25)
[2022-05-02] MEDS: LEVOTHYROXINE SODIUM 88 MCG TABLET PO SCH (06:30)
[2022-05-02] MEDS ORDERED: OLANZapine 10 MG/2.1 ML SDV IM PRN (09:21)
[2022-05-02] MEDS ORDERED: LORazepam 1 MG/1 ML SYR IV PRN (09:24)
[2022-05-02] MEDS ORDERED: LORazepam 0.5 MG in SYRINGE 0 ML IV PRN (09:34)
[2022-05-02] MEDS: ATORVASTATIN 20 MG TAB PO SCH (10:01)
[2022-05-02] MEDS: CITALOPRAM 40 MG TAB PO SCH (10:01)
[2022-05-02] MEDS: FUROSEMIDE 20 MG TAB PO SCH ×2 (10:02→18:46)
[2022-05-02] MEDS: MULTIVITAMIN TAB PO SCH (10:02)
[2022-05-02] MEDS: CHOLECALCIFEROL 1,000 UNITS 25 MCG TAB PO SCH (10:02)
[2022-05-02] MEDS: CALCIUM CARBONATE 1250MG TAB PO SCH (10:03)
[2022-05-02] MEDS ORDERED: INFLUENZA VACCINE HIGH DOSE PF 65+ 0.7 ML SYR IM ONE (11:02)
[2022-05-02] MEDS: metFORMIN HCL ER 500 MG TABCR PO SCH (14:01)
--- NOTE | 2022-05-02 15:19 | XCELERA ---
[id number]
--- NOTE | 2022-05-02 16:00 | Hospitalist Progress Note ---
Date of Service May 02, 2022 Assessment & Plan (1) Alzheimer's dementia: Plan: - Continue donepezil. - PT/OT, suspect need for placement - Case management consulted on admission for placement. - 11 sitter ordered. - Melatonin scheduled at night. - Zyprexa 2.5mg PO/IM for delirium if at risk to self or others, lorazepam 0.5mg IV if Zyprexa not effective (patient has care home use of this. - Suspect recent deterioration related to either pain from left rib fracture or tramadol and will d/c tramadol Given pain in legs will get XR of feet and tib/fib b/l (2) Left rib fracture: Plan: - Left ribs 5 through 7 fractures 10 days ago, seen again on imaging without evidence of pneumothorax. - Pain control: acetaminophen 1g TID, Toradol for breakthrough pain (trying to avoid opiates due to acute on chronic confusion) - Incentive spirometry every few hours at least if patient cooperative. (3) Lower extremity edema: Plan: - b/l LE edema, reports it is new over the past week or so. - Continue Lasix 20mg PO BID but will d/c if Cr or BUN rising - TTE with tricuspid regurgitation which may be contributing but most likely this is chronic. - BNP 46. - LFTs unremarkable - Cr normal and no protein in urine - suspect this is most likely as a result from falls and decreased mobility and poor nutrition - US venous doppler (4) Depression: Plan: - Continue citalopram. (5) Diabetes mellitus: Plan: - Takes metformin 3x weekly, will hold while admitted and defer on Accu- Cheks/SSI as her presenting sugar was 84 and frequent glucose checks may agitate patient. (6) Hypothyroidism: Plan: - Continue levothyroxine. Plan - Admit to med/surg. - SCDs, Lovenox for VTE ppx. - Full Code. Admission and Anticipated Discharge Date Admission Date: May 01, 2022 Subjective Unable to get any history from the patient. Leg swelling and erythema reportedly new although unclear duration - son at bedside from [place] and unable to fill in recent history. He reports mother's dementia has slowly been progressing for years. Review of Systems Review of Systems: Unobtainable due to cognitive status Physical Exam Constitutional: well developed and + acute distress (pain with any movement); + not well nourished Eyes: PERRL, conjunctivae normal, anicteric sclerae Respiratory: normal respiratory effort, lungs clear to auscultation Cardiovascular: Rate/Rhythm: regular rate and regular rhythm Heart Sounds: no murmur Gastrointestinal (Abdomen): normal bowel sounds, soft, nontender, no hepatosplenomegaly Musculoskeletal: Pain on movement of left > right leg with any movement. Pain over erythematous areas on dorsal aspect of both feet and shins Skin: + erythema (dorsal aspect of both feet with associated swelling and pre-tibial areas) Neurologic: moves all extremities, awake and + confused Psychiatric: Orientation: alert; + not oriented x 3 Genitourinary: no CVA tenderness Results & Data Results & Data ([facility]) Vital Signs (Past 12 Hours) Vital Signs Temp Pulse Resp BP BP Pulse Ox O2 Del Method 05/02/22 08:30 Nasal Cannula 05/02/22 08:30 36.7 C 86 18 122/64 95 Nasal Cannula 05/02/22 06:33 78 20 126/67 94 Room Air 05/02/22 04:09 72 18 132/70 94 Room Air O2 Flow Rate 05/02/22 08:30 4 05/02/22 08:30 4 05/02/22 06:33 05/02/22 04:09 PG Care Time/CCT Total # of Minutes Spent Total Time Spent with Patient: Total time spent is greater than 50% in coordination of care (as documented) at patient's floor/unit and/or counseling patient: Coding Level of Care Code 52625 Subseq Hosp Care Lvl 2 Diagnoses Alzheimer's dementia G30.9; F02.80 Left rib fracture S22.32XA Lower extremity edema R60.0 Depression F32.9 Diabetes mellitus E11.9 Diabetes mellitus complication status: without complication Diabetes mellitus care home insulin use: without watermelon inspector use Diabetes mellitus type: type 2 Hypothyroidism E03.9 Hypothyroidism type: acquired (1) Diabetes mellitus Diabetes mellitus complication status: without complication Diabetes mellitus care home insulin use: without watermelon inspector use Diabetes mellitus type: type 2 Qualified Code(s): E11.9 - Type 2 diabetes mellitus without complications (2) Hypothyroidism Hypothyroidism type: acquired Qualified Code(s): E03.9 - Hypothyroidism, unspecified
--- NOTE | 2022-05-02 16:35 | CT Scan Report ---
CT hip LT wo con HISTORY: 86 years-old Female pain with left hip rotation acute left hip pain COMPARISON: Pelvis and hip radiographs 05/01/2022, CT pelvis 11/17/2021 TECHNIQUE: Multiple axial CT images of the left hip were obtained without use of IV contrast. A dose lowering technique was used consistent with the principals of PHIL. FINDINGS: Moderate colonic fecal retention with colonic diverticulosis. Distended urinary bladder. Unremarkable soft tissues. No large joint effusion. Moderate degeneration of the left SI joint. Mild osteoarthrit is of the left hip without acute fracture, dislocation or avascular necrosis identified. Healing suba cute nondisplaced fracture of the right inferior pubic ramus. Cortical angulation and buckling involv ing the medial aspects of the left superior and inferior pubic rami are new from prior. IMPRESSION: 1. Mild osteoarthritis of the left hip without acute fracture or dislocation. 2. Healing subacute nondisplaced fracture of the right inferior pubic ramus. 3. Cortical buckling of the left superior and inferior pubic rami are new from 11/17/2021 compatible w ith acute or subacute are nondisplaced fractures. ACT 112: Negative or not required by law. The above report was generated using voice recognition software. It may contain grammatical, syntax o r spelling errors. Electronically signed by: Arnold Sullivan M.D. 05/02/2022 4:34 PM
--- NOTE | 2022-05-02 17:29 | XRay Report ---
XR tibia fibula RT 2V, XR tibia fibula LT 2V, XR foot RT 2V, XR foot LT 2V CLINICAL HISTORY: pain, swelling ?fracture . Bilateral lower extremity edema, has been reported is ne w over the past week. TECHNIQUE: 2 radiographic views of the bilateral legs 3 views and 3 views of the bilateral feet were obtained. Comparison: Comparison is made to right tibia and fibula radiographs 04/02/2021 FINDINGS: No acute fracture is seen. There is interval healing change of previously noted right fibular fractur e. Joint spaces are well-preserved. Soft tissue swelling is seen. IMPRESSION: Soft tissue swelling is seen bilaterally without evidence of acute fracture. Old healed fracture of t he right tibia and fibula are seen. ACT 112: Negative or not required by law. Electronically signed by: Troy Mcgovern M.D. 05/02/2022 5:27 PM
[2022-05-02] MEDS ORDERED: KETOROLAC TROMETHAMINE 15 MG/ML VIAL IV PRN (18:28)
[2022-05-02] MEDS: ENOXAPARIN INJ 40 MG/0.4 ML SYR SQ SCH (21:36)
[2022-05-02] MEDS: ACETAMINOPHEN 500 MG TAB PO SCH (21:37)
[2022-05-02] MEDS: MELATONIN 3 MG TAB PO SCH (21:39)
[2022-05-02] MEDS: DONEPEZIL HCL 10 MG TAB PO SCH (21:40)
[2022-05-03] MEDS: LEVOTHYROXINE SODIUM 88 MCG TABLET PO SCH (06:27)
--- NOTE | 2022-05-03 07:09 | Ultrasound Report ---
BILATERAL LOWER EXTREMITY VENOUS DOPPLER HISTORY: Acute pain and swelling of the right lower leg erythema and swelling b/l COMPARISON STUDY: 12/25/2011 FINDINGS: There is normal compressibility, flow, and augmentation within the bilateral lower extremit y deep venous systems. IMPRESSION: No DVT within the right or left lower extremity. ACT 112: Negative or not required by law. Electronically signed by: Arnold Sullivan M.D. 05/03/2022 7:08 AM
[2022-05-03] MEDS: CHOLECALCIFEROL 1,000 UNITS 25 MCG TAB PO SCH (09:06)
[2022-05-03] MEDS: CALCIUM CARBONATE 1250MG TAB PO SCH (09:07)
[2022-05-03] MEDS: ACETAMINOPHEN 500 MG TAB PO SCH ×3 (09:07→22:04)
[2022-05-03] MEDS: MULTIVITAMIN TAB PO SCH (09:08)
[2022-05-03] MEDS: FUROSEMIDE 20 MG TAB PO SCH ×2 (09:08→17:20)
[2022-05-03] MEDS: CITALOPRAM 40 MG TAB PO SCH (09:09)
[2022-05-03] MEDS: ATORVASTATIN 20 MG TAB PO SCH (09:09)
[2022-05-03 11:03] LABS: Basophils # (auto) 0.03 K/uL (0-0.2); Basophils % (auto) 0.5 %; Eosinophils # (auto) 0.29 K/uL (0-0.50); Eosinophils % (auto) 5.1 %; Hematocrit (blood only) 35.6 % (34.1-44.9); Hemoglobin 11.9 g/dl (12.0-16.0); Immature Granulocytes # (auto) 0.01 K/uL (0.00-0.02); Immature Granulocytes % (auto) 0.2 %; Lymphocytes % (auto) 21.1 %; Mean Corpuscular Hemoglobin 31.8 pg (25.0-34.0); Mean Corpuscular Hgb Conc 33.4 g/dL (32.0-36.0); Mean Corpuscular Volume 95.2 fL (80.0-100.0); Mean Platelet Volume 9.3 fL (9.4-12.3); Monocytes # (auto) 0.55 K/uL (0.24-0.82); Monocytes % (auto) 9.7 %; Neutrophils % (auto) 63.4 %; Platelet Count 187 K/uL (130-400); RDW Standard Deviation 48.7 fL (36.4-46.3); Red Blood Count 3.74 M/uL (3.93-5.22); White Blood Count 5.68 K/ul (4.8-10.8)
[2022-05-03 11:22] LABS: Albumin Globulin Ratio 0.9 (0.9-2); BUN Creatinine Ratio 10.2 (10-20); Bilirubin,Total 0.6 mg/dl (0.2-1.0); Calcium 8.7 mg/dl (8.5-10.1); Creatinine Clr Calc Pharmacy 53.6 ml/min; Est GFR (African American) 69.9 ml/min; Est GFR (Non-African American) 60.3 ml/min; Globulin 3.2 gm/dl (2.5-4.0); Phosphorus 3.7 mg/dl (2.5-4.9); Potassium 3.6 mmol/L (3.5-5.1); Total Protein 6.2 gm/dl (6.0-8.3)
--- NOTE | 2022-05-03 14:00 | Hospitalist Progress Note ---
Date of Service May 03, 2022 Assessment & Plan (1) Alzheimer's dementia: Plan: - Continue donepezil. - PT/OT, suspect need for placement - Case management consulted on admission for placement. - 11 sitter ordered. - Melatonin scheduled at night. - Zyprexa 2.5mg PO/IM for delirium if at risk to self or others, lorazepam 0.5mg IV if Zyprexa not effective (patient has [facility]cc use of this. - Given improvement in mentation suspect acute toxic encephalopathy from tramadol XR feet tib/fib negative for fracture (2) Left rib fracture: Plan: - Left ribs 5 through 7 fractures 10 days ago, seen again on imaging without evidence of pneumothorax. - Pain control: acetaminophen 1g TID, Toradol for breakthrough pain (trying to avoid opiates due to acute on chronic confusion) - Incentive spirometry every few hours at least if patient cooperative. (3) Lower extremity edema: Plan: - b/l LE edema, reports it is new over the past week or so. - Continue Lasix 20mg PO BID but will d/c if Cr or BUN rising - TTE with tricuspid regurgitation which may be contributing but most likely this is chronic. - BNP 46. - LFTs unremarkable - Cr normal and no protein in urine - US venous doppler - negative for DVT - suspect this is most likely as a result from falls and decreased mobility and poor nutrition but given improvement with Lasix will continue this as Cr/BUN stable (4) Depression: Plan: - Continue citalopram. (5) Diabetes mellitus: Plan: - Takes metformin 3x weekly, will hold while admitted and defer on Accu- Cheks/SSI as her presenting sugar was 84 and frequent glucose checks may agitate patient. (6) Hypothyroidism: Plan: - Continue levothyroxine. Plan - Continued admission to med/surg. - SCDs, Lovenox for VTE ppx. - Full Code. Admission and Anticipated Discharge Date Admission Date: May 02, 2022 Subjective Unable to get any history from patient. Discussed care with her in the room. He reports significant improvement since yesterday. The patient is eating and drinking much more back to her baseline. Still having significant pain with any leg movements however. Bilateral leg swelling improving. No worsening erythema. No fevers or chills. Oxygen requirement down from 4 L to 2 L/min. Discussed upcoming trip tomorrow to [place] and advised against this given the degree of help she is requiring. Review of Systems Review of Systems: Unobtainable due to cognitive status Physical Exam Constitutional: well developed and + acute distress (pain with any movement); + not well nourished Respiratory: normal respiratory effort, lungs clear to auscultation Cardiovascular: Rate/Rhythm: regular rate and regular rhythm Heart Sounds: no murmur Extremities: + pedal edema (1+ pretibial bilateral equal) Gastrointestinal (Abdomen): normal bowel sounds, soft, nontender, no hepatosplenomegaly Skin: + erythema (dorsal aspect of both feet with associated swelling and pre-tibial areas) Neurologic: moves all extremities, awake and + confused Psychiatric: Orientation: alert; + not oriented x 3 (Much more alert than yesterday) Genitourinary: no CVA tenderness Results & Data Results & Data ([facility]) Vital Signs (Past 12 Hours) Vital Signs Temp Pulse Resp BP Pulse Ox O2 Del Method O2 Flow Rate 05/03/22 11:53 96 Nasal Cannula 2 05/03/22 11:51 89 L Nasal Cannula 1 05/03/22 11:43 95 Nasal Cannula 2 05/03/22 11:38 95 Nasal Cannula 3 05/03/22 06:57 36.7 C 85 18 130/74 95 Nasal Cannula 4 PG Care Time/CCT Total # of Minutes Spent Total Time Spent with Patient: Total time spent is greater than 50% in coordination of care (as documented) at patient's floor/unit and/or counseling patient: Coding Level of Care Code 19687 Subseq Hosp Care Lvl 2 Diagnoses Alzheimer's dementia G30.9; F02.80 Left rib fracture S22.32XA Lower extremity edema R60.0 Depression F32.9 Diabetes mellitus E11.9 Diabetes mellitus complication status: without complication Diabetes mellitus termite helper insulin use: without termite helper use Diabetes mellitus type: type 2 Hypothyroidism E03.9 Hypothyroidism type: acquired (1) Diabetes mellitus Diabetes mellitus complication status: without complication Diabetes mellitus termite helper insulin use: without mcc use Diabetes mellitus type: type 2 Qualified Code(s): E11.9 - Type 2 diabetes mellitus without complications (2) Hypothyroidism Hypothyroidism type: acquired Qualified Code(s): E03.9 - Hypothyroidism, unspecified
[2022-05-03] MEDS: MELATONIN 3 MG TAB PO SCH (21:46)
[2022-05-03] MEDS: ENOXAPARIN INJ 40 MG/0.4 ML SYR SQ SCH (21:46)
[2022-05-03] MEDS: DONEPEZIL HCL 10 MG TAB PO SCH (21:47)
--- NOTE | 2022-05-03 21:58 | Electrocardiogram Report ---
Test Reason : Blood Pressure : / mmHG Vent. Rate : 072 BPM Atrial Rate : 072 BPM P-R Int : 174 ms QRS Dur : 084 ms QT Int : 408 ms P-R-T Axes : 067 -21 022 degrees QTc Int : 446 ms Normal sinus rhythm Normal ECG When compared with ECG of 10-MAR-2006 14:37, No significant change Confirmed by Alex Brar ([id number]) on 05/03/2022 9:58:29 PM Referred By: REFERRED SELF Confirmed By:Alex Brar
[2022-05-04] MEDS: LEVOTHYROXINE SODIUM 88 MCG TABLET PO SCH (05:46)
[2022-05-04 07:05] LABS: BUN Creatinine Ratio 12.3 (10-20); Calcium 8.1 mg/dl (8.5-10.1); Creatinine Clr Calc Pharmacy 58.3 ml/min; Est GFR (African American) 77.3 ml/min; Est GFR (Non-African American) 66.7 ml/min; Potassium 3.3 mmol/L (3.5-5.1)
[2022-05-04] MEDS: ATORVASTATIN 20 MG TAB PO SCH (08:50)
[2022-05-04] MEDS: CITALOPRAM 40 MG TAB PO SCH (08:50)
[2022-05-04] MEDS: FUROSEMIDE 20 MG TAB PO SCH ×2 (08:50→16:05)
[2022-05-04] MEDS: CALCIUM CARBONATE 1250MG TAB PO SCH (08:50)
[2022-05-04] MEDS: CHOLECALCIFEROL 1,000 UNITS 25 MCG TAB PO SCH (08:50)
[2022-05-04] MEDS: MULTIVITAMIN TAB PO SCH (08:51)
[2022-05-04] MEDS: ACETAMINOPHEN 500 MG TAB PO SCH ×3 (08:51→20:06)
[2022-05-04] MEDS ORDERED: POTASSIUM CHLORIDE CRTAB 20 MEQ TABCR PO STA (09:48)
--- NOTE | 2022-05-04 16:35 | Hospitalist Progress Note ---
Date of Service May 04, 2022 Assessment & Plan (1) Alzheimer's dementia: Plan: - Continue donepezil. - PT/OT, suspect need for placement - Case management consulted on admission for placement. - 11 sitter ordered. - Melatonin scheduled at night. - Zyprexa 2.5mg PO/IM for delirium if at risk to self or others, lorazepam 0.5mg IV if Zyprexa not effective (patient has long-term use of this. - Given improvement in mentation suspect acute toxic encephalopathy from tramadol XR feet tib/fib negative for fracture (2) Closed fracture of ramus of left pubis: Plan: Weight bear as tolerated PT/OT (3) Left rib fracture: Plan: - Left ribs 5 through 7 fractures 10 days ago, seen again on imaging without evidence of pneumothorax. - Pain control: acetaminophen 1g TID, Toradol for breakthrough pain (trying to avoid opiates due to acute on chronic confusion) - Incentive spirometry every few hours at least if patient cooperative. (4) Lower extremity edema: Plan: - b/l LE edema, reports it is new over the past week or so. - Continue Lasix 20mg PO BID but will d/c if Cr or BUN rising - TTE with tricuspid regurgitation which may be contributing but most likely this is chronic. - BNP 46. - LFTs unremarkable - Cr normal and no protein in urine - US venous doppler - negative for DVT - suspect this is most likely as a result from falls and decreased mobility and poor nutrition but given improvement with Lasix will continue this as Cr/BUN stable (5) Depression: Plan: - Continue citalopram. (6) Diabetes mellitus: Plan: - Takes metformin 3x weekly, will hold while admitted and defer on Accu- Cheks/SSI as her presenting sugar was 84 and frequent glucose checks may agitate patient. (7) Hypothyroidism: Plan: - Continue levothyroxine. Plan - Continued admission to med/surg. - SCDs, Lovenox for VTE ppx. - Full Code. Admission and Anticipated Discharge Date Admission Date: May 02, 2022 Subjective Patient confused with getting out of bed frequently when her does not present. Unable to get any history from the patient. Leg swelling appears improved with erythema stable. Medically stable for discharge pending placement this time. Review of Systems Review of Systems: All systems reviewed & are unremarkable except as noted in Subjective Physical Exam Constitutional: well developed and + acute distress (pain with any movement); + not well nourished Eyes: PERRL, conjunctivae normal, anicteric sclerae Respiratory: normal respiratory effort, lungs clear to auscultation Cardiovascular: Rate/Rhythm: regular rate and regular rhythm Heart Sounds: no murmur Extremities: + pedal edema (1+ pretibial bilateral equal) Gastrointestinal (Abdomen): normal bowel sounds, soft, nontender, no hepatosplenomegaly Skin: + erythema (dorsal aspect of both feet with associated swelling and pre-tibial areas) Neurologic: moves all extremities, awake and + confused Psychiatric: Orientation: alert; + not oriented x 3 (Much more alert than yesterday) Results & Data Results & Data ([facility]) Vital Signs (Past 12 Hours) Vital Signs Temp Pulse Resp BP BP Pulse Ox O2 Del Method 05/04/22 15:51 36.9 C 72 16 120/72 92 Room Air 05/04/22 06:47 36.2 C L 88 18 152/75 H 91 Room Air PG Care Time/CCT Total # of Minutes Spent Total Time Spent with Patient: Total time spent is greater than 50% in coordination of care (as documented) at patient's floor/unit and/or counseling patient: Coding Level of Care Code 21782 Subseq Hosp Care Lvl 1 Diagnoses Alzheimer's dementia G30.9; F02.80 Closed fracture of ramus of left pubis S32.592A Left rib fracture S22.32XA Lower extremity edema R60.0 Depression F32.9 Diabetes mellitus E11.9 Diabetes mellitus complication status: without complication Diabetes mellitus long-term insulin use: without long-term use Diabetes mellitus type: type 2 Hypothyroidism E03.9 Hypothyroidism type: acquired (1) Diabetes mellitus Diabetes mellitus complication status: without complication Diabetes mellitus long-term insulin use: without long-term use Diabetes mellitus type: type 2 Qualified Code(s): E11.9 - Type 2 diabetes mellitus without complications (2) Hypothyroidism Hypothyroidism type: acquired Qualified Code(s): E03.9 - Hypothyroidism, unspecified
[2022-05-04] MEDS: OLANZAPINE 2.5 MG TAB PO PRN (17:02)
[2022-05-04] MEDS: DONEPEZIL HCL 10 MG TAB PO SCH (20:06)
[2022-05-04] MEDS: MELATONIN 3 MG TAB PO SCH (20:06)
[2022-05-04] MEDS: ENOXAPARIN INJ 40 MG/0.4 ML SYR SQ SCH (22:03)
[2022-05-05] MEDS: LEVOTHYROXINE SODIUM 88 MCG TABLET PO SCH (06:10)
[2022-05-05] MEDS: FUROSEMIDE 20 MG TAB PO SCH ×2 (08:44→16:59)
[2022-05-05] MEDS: CHOLECALCIFEROL 1,000 UNITS 25 MCG TAB PO SCH (08:44)
[2022-05-05] MEDS: CALCIUM CARBONATE 1250MG TAB PO SCH (08:44)
[2022-05-05] MEDS: metFORMIN HCL ER 500 MG TABCR PO SCH (08:44)
[2022-05-05] MEDS: ATORVASTATIN 20 MG TAB PO SCH (08:44)
[2022-05-05] MEDS: CITALOPRAM 40 MG TAB PO SCH (08:44)
[2022-05-05] MEDS: ACETAMINOPHEN 500 MG TAB PO SCH ×3 (08:44→20:10)
[2022-05-05] MEDS: MULTIVITAMIN TAB PO SCH (08:44)
[2022-05-05 09:16] LABS: BUN Creatinine Ratio 12.5 (10-20); Calcium 8.3 mg/dl (8.5-10.1); Creatinine Clr Calc Pharmacy 53.6 ml/min; Est GFR (African American) 69.9 ml/min; Est GFR (Non-African American) 60.3 ml/min; Potassium 3.8 mmol/L (3.5-5.1)
--- NOTE | 2022-05-05 13:23 | Hospitalist Progress Note ---
Date of Service May 05, 2022 Assessment & Plan (1) Toxic encephalopathy: Plan: Secondary to tramadol. Significant improvement since stopping this medication. Recommend chronically discontinuing lorazepam -she has not required this during her current admission. If needing something for agitation recommend Zyprexa in the outpatient setting. Present on Admission?: Yes (2) Alzheimer's dementia: Plan: - Continue donepezil. - PT/OT, suspect need for placement - Case management consulted on admission for placement. - 11 sitter now discontinued although patient own's every night when her leaves. - Melatonin scheduled at night. - Zyprexa 2.5mg PO/IM for delirium if at risk to self or others XR feet tib/fib negative for fracture (3) Closed fracture of ramus of left pubis: Plan: Weight bear as tolerated PT/OT, discharge to inpatient physical rehabilitation (4) Left rib fracture: Plan: - Left ribs 5 through 7 fractures 10 days ago, seen again on imaging without evidence of pneumothorax. - Pain control: acetaminophen 1g TID, Toradol for breakthrough pain (trying to avoid opiates due to acute on chronic confusion) - Incentive spirometry every few hours at least if patient cooperative. (5) Lower extremity edema: Plan: - b/l LE edema, reports it is new over the past week or so. - Continue Lasix 20mg PO BID but will d/c if Cr or BUN rising - TTE with tricuspid regurgitation which may be contributing but most likely this is chronic. - BNP 46. - LFTs unremarkable - Cr normal and no protein in urine - US venous doppler - negative for DVT - suspect this is most likely as a result from falls and decreased mobility and poor nutrition but given improvement with Lasix will continue this as Cr/BUN stable. Will decrease to 20 mg p.o. daily. (6) Depression: Plan: - Continue citalopram. (7) Diabetes mellitus: Plan: - Takes metformin 3x weekly, will hold while admitted and defer on Accu- Cheks/SSI as her presenting sugar was 84 and frequent glucose checks may agitate patient. (8) Hypothyroidism: Plan: - Continue levothyroxine. Plan - Continued admission to med/surg. Medically stable for discharge pending placement at this time. - SCDs, Lovenox for VTE ppx. - Full Code. Admission and Anticipated Discharge Date Admission Date: May 02, 2022 Subjective Unable to get any history from the patient. Her son is at bedside with her [id number]. Multiple questions also regarding travel to [place]. Recommended reassessment after her physical therapy rehab placement. They request [facility] and per case management note from today this is 1 of many insurance authorization that is being sent. Her leg swelling appears much improved at this time and erythema has become more dark. Review of Systems Review of Systems: Unobtainable due to cognitive status Physical Exam Constitutional: well developed and + acute distress (pain with any movement, vastly improved since admission); + not well nourished Respiratory: normal respiratory effort, lungs clear to auscultation Cardiovascular: Rate/Rhythm: regular rate and regular rhythm Heart Sounds: no murmur Extremities: + pedal edema (Trace pretibial bilateral equal) Gastrointestinal (Abdomen): normal bowel sounds, soft, nontender, no hepatosplenomegaly Skin: + erythema (Appears much darker than prior) Neurologic: moves all extremities, awake and + confused Psychiatric: Orientation: alert; + not oriented x 3 Results & Data Results & Data ([facility]) Vital Signs (Past 12 Hours) Vital Signs Temp Pulse Resp BP Pulse Ox O2 Del Method 05/05/22 07:49 36.3 C L 76 16 128/78 91 Room Air PG Care Time/CCT Total # of Minutes Spent Total Time Spent with Patient: Total time spent is greater than 50% in coordination of care (as documented) at patient's floor/unit and/or counseling patient: Coding Level of Care Code 92311 Subseq Hosp Care Lvl 1 Diagnoses Toxic encephalopathy G92.9 Alzheimer's dementia G30.9; F02.80 Closed fracture of ramus of left pubis S32.592A Left rib fracture S22.32XA Lower extremity edema R60.0 Depression F32.9 Diabetes mellitus E11.9 Diabetes mellitus complication status: without complication Diabetes mellitus watermelon harvesting supervisor insulin use: without watermelon harvesting supervisor use Diabetes mellitus type: type 2 Hypothyroidism E03.9 Hypothyroidism type: acquired (1) Diabetes mellitus Diabetes mellitus complication status: without complication Diabetes mellitus watermelon harvesting supervisor insulin use: without watermelon harvesting supervisor use Diabetes mellitus type: type 2 Qualified Code(s): E11.9 - Type 2 diabetes mellitus without complications (2) Hypothyroidism Hypothyroidism type: acquired Qualified Code(s): E03.9 - Hypothyroidism, unspecified
[2022-05-05] MEDS: DONEPEZIL HCL 10 MG TAB PO SCH (20:11)
[2022-05-05] MEDS: MELATONIN 3 MG TAB PO SCH (20:15)
[2022-05-05] MEDS: ENOXAPARIN INJ 40 MG/0.4 ML SYR SQ SCH (20:15)
[2022-05-06] MEDS: LEVOTHYROXINE SODIUM 88 MCG TABLET PO SCH (06:06)
[2022-05-06] MEDS: ACETAMINOPHEN 500 MG TAB PO SCH ×3 (09:20→20:25)
[2022-05-06] MEDS: ATORVASTATIN 20 MG TAB PO SCH (09:20)
[2022-05-06] MEDS: FUROSEMIDE 20 MG TAB PO SCH (09:20)
[2022-05-06] MEDS: CHOLECALCIFEROL 1,000 UNITS 25 MCG TAB PO SCH (09:21)
[2022-05-06] MEDS: CITALOPRAM 40 MG TAB PO SCH (09:21)
[2022-05-06] MEDS: CALCIUM CARBONATE 1250MG TAB PO SCH (09:21)
[2022-05-06] MEDS: MULTIVITAMIN TAB PO SCH (09:21)
[2022-05-06 10:45] LABS: Calcium 8.9 mg/dl (8.5-10.1); Creatinine Clr Calc Pharmacy 50.2 ml/min; Est GFR (African American) 64.6 ml/min; Est GFR (Non-African American) 55.7 ml/min; Potassium 4.1 mmol/L (3.5-5.1)
--- NOTE | 2022-05-06 19:18 | Hospitalist Progress Note ---
Date of Service May 06, 2022 Assessment & Plan (1) Toxic encephalopathy: Plan: Secondary to tramadol. Significant improvement since stopping this medication. Recommend chronically discontinuing lorazepam -she has not required this during her current admission. If needing something for agitation recommend Zyprexa in the outpatient setting. (2) Alzheimer's dementia: Plan: - Continue donepezil. - PT/OT, suspect need for placement - Case management consulted on admission for placement. - 11 sitter now discontinued although patient sundown's every night when her leaves. - Melatonin scheduled at night. - Zyprexa 2.5mg PO/IM for delirium if at risk to self or others XR feet tib/fib negative for fracture (3) Closed fracture of ramus of left pubis: Plan: Weight bear as tolerated PT/OT, discharge to inpatient physical rehabilitation (4) Left rib fracture: Plan: - Left ribs 5 through 7 fractures 10 days ago, seen again on imaging without evidence of pneumothorax. - Pain control: acetaminophen 1g TID, Toradol for breakthrough pain (trying to avoid opiates due to acute on chronic confusion) - Incentive spirometry every few hours at least if patient cooperative. (5) Lower extremity edema: Plan: - b/l LE edema, reports it is new over the past week or so. - Continue Lasix 20mg PO BID but will d/c if Cr or BUN rising - TTE with tricuspid regurgitation which may be contributing but most likely this is chronic. - BNP 46. - LFTs unremarkable - Cr normal and no protein in urine - US venous doppler - negative for DVT -Appears to have improved significantly with Lasix therefore will continue on 20 mg p.o. daily as this does not appear to be causing any side effects. (6) Depression: Plan: - Continue citalopram. (7) Diabetes mellitus: Plan: - Takes metformin 3x weekly, will hold while admitted and defer on Accu- Cheks/SSI as her presenting sugar was 84 and frequent glucose checks may agitate patient. (8) Hypothyroidism: Plan: - Continue levothyroxine. Plan - Continued admission to med/surg. Medically stable for discharge pending placement at this time. - SCDs, Lovenox for VTE ppx. - Full Code. Admission and Anticipated Discharge Date Admission Date: May 02, 2022 Subjective No family members at bedside when seen. She is saying more words to me today but is very hard of hearing and I am unable to have a conversation with her other than her directing me to move her tray. Appears much less delirious and not trying to get out of bed. Review of Systems Review of Systems: All systems reviewed & are unremarkable except as noted in Subjective Physical Exam Constitutional: well developed; + not well nourished Cardiovascular: Rate/Rhythm: regular rate and regular rhythm Heart Sounds: no murmur Extremities: no pedal edema Gastrointestinal (Abdomen): normal bowel sounds, soft, nontender, no hepatosplenomegaly Skin: + erythema (Appears much darker than prior) Neurologic: moves all extremities, awake and + confused Psychiatric: Orientation: alert; + not oriented x 3 Results & Data Results & Data ([facility]) Vital Signs (Past 12 Hours) Vital Signs Temp Pulse Resp BP Pulse Ox O2 Del Method 05/06/22 15:24 37.0 C 71 18 126/69 92 Room Air 05/06/22 09:00 Room Air 05/06/22 08:24 36.4 C L 68 16 154/70 H 91 Room Air PG Care Time/CCT Total # of Minutes Spent Total Time Spent with Patient: Total time spent is greater than 50% in coordination of care (as documented) at patient's floor/unit and/or counseling patient: Coding Level of Care Code 12091 Subseq Hosp Care Lvl 1 Diagnoses Toxic encephalopathy G92.9 Alzheimer's dementia G30.9; F02.80 Closed fracture of ramus of left pubis S32.592A Left rib fracture S22.32XA Lower extremity edema R60.0 Depression F32.9 Diabetes mellitus E11.9 Diabetes mellitus complication status: without complication Diabetes mellitus medical terminologist insulin use: without medical terminologist use Diabetes mellitus type: type 2 Hypothyroidism E03.9 Hypothyroidism type: acquired (1) Diabetes mellitus Diabetes mellitus complication status: without complication Diabetes mellitus care home insulin use: without medical terminologist use Diabetes mellitus type: type 2 Qualified Code(s): E11.9 - Type 2 diabetes mellitus without complications (2) Hypothyroidism Hypothyroidism type: acquired Qualified Code(s): E03.9 - Hypothyroidism, unspecified
[2022-05-06] MEDS: ENOXAPARIN INJ 40 MG/0.4 ML SYR SQ SCH (20:24)
[2022-05-06] MEDS: DONEPEZIL HCL 10 MG TAB PO SCH (20:24)
[2022-05-06] MEDS: MELATONIN 3 MG TAB PO SCH (20:27)
[2022-05-07] MEDS: OLANZAPINE 2.5 MG TAB PO PRN ×4 (01:56→20:06)
[2022-05-07] MEDS: LEVOTHYROXINE SODIUM 88 MCG TABLET PO SCH (04:33)
[2022-05-07] MEDS: CALCIUM CARBONATE 1250MG TAB PO SCH (08:01)
[2022-05-07] MEDS: metFORMIN HCL ER 500 MG TABCR PO SCH (08:01)
[2022-05-07] MEDS: CITALOPRAM 40 MG TAB PO SCH (08:01)
[2022-05-07] MEDS: FUROSEMIDE 20 MG TAB PO SCH (08:01)
[2022-05-07] MEDS: MULTIVITAMIN TAB PO SCH (08:01)
[2022-05-07] MEDS: ATORVASTATIN 20 MG TAB PO SCH (08:01)
[2022-05-07] MEDS: ACETAMINOPHEN 500 MG TAB PO SCH ×3 (08:01→20:06)
[2022-05-07] MEDS: CHOLECALCIFEROL 1,000 UNITS 25 MCG TAB PO SCH (08:01)
[2022-05-07 09:07] LABS: Creatinine Clr Calc Pharmacy 58.3 ml/min; Est GFR (African American) 77.3 ml/min; Est GFR (Non-African American) 66.7 ml/min
--- NOTE | 2022-05-07 19:22 | Hospitalist Progress Note ---
Date of Service May 07, 2022 Assessment & Plan (1) Toxic encephalopathy: Plan: Secondary to tramadol. Significant improvement since stopping this medication. Recommend chronically discontinuing lorazepam -she has not required this during her current admission. If needing something for agitation recommend Zyprexa in the outpatient setting. (2) Alzheimer's dementia: Plan: - Continue donepezil. - PT/OT, suspect need for placement - Case management consulted on admission for placement. - 11 sitter now discontinued although patient sundown's every night when her leaves. - Melatonin scheduled at night. - Zyprexa 2.5mg PO/IM for delirium if at risk to self or others XR feet tib/fib negative for fracture (3) Closed fracture of ramus of left pubis: Plan: Weight bear as tolerated PT/OT, discharge to inpatient physical rehabilitation (4) Left rib fracture: Plan: - Left ribs 5 through 7 fractures 10 days ago, seen again on imaging without evidence of pneumothorax. - Pain control: acetaminophen 1g TID, Toradol for breakthrough pain (trying to avoid opiates due to acute on chronic confusion) - Incentive spirometry every few hours at least if patient cooperative. (5) Lower extremity edema: Plan: - b/l LE edema, reports it is new over the past week or so. - Continue Lasix 20mg PO BID but will d/c if Cr or BUN rising - TTE with tricuspid regurgitation which may be contributing but most likely this is chronic. - BNP 46. - LFTs unremarkable - Cr normal and no protein in urine - US venous doppler - negative for DVT -Appears to have improved significantly with Lasix therefore will continue on 20 mg p.o. daily as this does not appear to be causing any side effects. (6) Depression: Plan: - Continue citalopram. (7) Diabetes mellitus: Plan: - Takes metformin 3x weekly, will hold while admitted and defer on Accu- Cheks/SSI as her presenting sugar was 84 and frequent glucose checks may agitate patient. (8) Hypothyroidism: Plan: - Continue levothyroxine. Plan - Continued admission to med/surg. Medically stable for discharge pending placement at this time. - SCDs, Lovenox for VTE ppx. - Full Code. Admission and Anticipated Discharge Date Admission Date: May 02, 2022 Subjective pt has underlying delerium Physical Exam Physical Exam: Cardiovascular S1-S2 heard normally Lungs bilateral air entry slightly decreased at bases Abdomen soft Extremity no edema Results & Data Results & Data ([facility]) Vital Signs (Past 12 Hours) Vital Signs Temp Pulse Resp BP Pulse Ox O2 Del Method 05/07/22 15:21 36.4 C L 80 14 132/83 95 Room Air 05/07/22 14:36 36.3 C L 78 16 117/80 94 Room Air 05/07/22 07:25 Room Air PG Care Time/CCT Total # of Minutes Spent Total Time Spent with Patient: Total time spent is greater than 50% in coordination of care (as documented) at patient's floor/unit and/or counseling patient: Coding Level of Care Code 66261 Subseq Hosp Care Lvl 1 Diagnoses Toxic encephalopathy G92.9 Alzheimer's dementia G30.9; F02.80 Closed fracture of ramus of left pubis S32.592A Left rib fracture S22.32XA Lower extremity edema R60.0 Depression F32.9 Diabetes mellitus E11.9 Diabetes mellitus type: type 2 Diabetes mellitus manager long term care insulin use: without senior care use Diabetes mellitus complication status: without complication Hypothyroidism E03.9 Hypothyroidism type: acquired (1) Diabetes mellitus Diabetes mellitus type: type 2 Diabetes mellitus manager long term care insulin use: without manager long term care use Diabetes mellitus complication status: without complication Qualified Code(s): E11.9 - Type 2 diabetes mellitus without complications (2) Hypothyroidism Hypothyroidism type: acquired Qualified Code(s): E03.9 - Hypothyroidism, unspecified
[2022-05-07] MEDS: ENOXAPARIN INJ 40 MG/0.4 ML SYR SQ SCH (20:07)
[2022-05-07] MEDS: DONEPEZIL HCL 10 MG TAB PO SCH (20:08)
[2022-05-07] MEDS: MELATONIN 3 MG TAB PO SCH (20:09)
[2022-05-07] MEDS ORDERED: OLANZAPINE 2.5 MG TAB PO ONE (20:53)
[2022-05-08] MEDS: MULTIVITAMIN TAB PO SCH (07:54)
[2022-05-08] MEDS: FUROSEMIDE 20 MG TAB PO SCH (07:55)
[2022-05-08] MEDS: CHOLECALCIFEROL 1,000 UNITS 25 MCG TAB PO SCH (07:56)
[2022-05-08] MEDS: CITALOPRAM 40 MG TAB PO SCH (07:56)
[2022-05-08] MEDS: ATORVASTATIN 20 MG TAB PO SCH (07:57)
[2022-05-08] MEDS: ACETAMINOPHEN 500 MG TAB PO SCH ×3 (07:58→19:58)
[2022-05-08] MEDS: LEVOTHYROXINE SODIUM 88 MCG TABLET PO SCH (07:58)
[2022-05-08] MEDS: CALCIUM CARBONATE 1250MG TAB PO SCH (08:03)
[2022-05-08] MEDS ORDERED: Nursing to Pharmacy Communication SCH (12:45)
[2022-05-08] MEDS: ENOXAPARIN INJ 40 MG/0.4 ML SYR SQ SCH (19:57)
[2022-05-08] MEDS: MELATONIN 3 MG TAB PO SCH (19:58)
[2022-05-08] MEDS: DONEPEZIL HCL 10 MG TAB PO SCH (19:59)
--- NOTE | 2022-05-08 20:44 | Hospitalist Progress Note ---
Date of Service May 08, 2022 Assessment & Plan (1) Toxic encephalopathy: Plan: Secondary to tramadol. Significant improvement since stopping this medication. Recommend chronically discontinuing lorazepam -she has not required this during her current admission. If needing something for agitation recommend Zyprexa in the outpatient setting. (2) Alzheimer's dementia: Plan: - Continue donepezil. - PT/OT, suspect need for placement - Case management consulted on admission for placement. - 11 sitter now discontinued although patient sundown's every night when her leaves. - Melatonin scheduled at night. - Zyprexa 2.5mg PO/IM for delirium if at risk to self or others XR feet tib/fib negative for fracture (3) Closed fracture of ramus of left pubis: Plan: Weight bear as tolerated PT/OT, discharge to inpatient physical rehabilitation (4) Left rib fracture: Plan: - Left ribs 5 through 7 fractures 10 days ago, seen again on imaging without evidence of pneumothorax. - Pain control: acetaminophen 1g TID, Toradol for breakthrough pain (trying to avoid opiates due to acute on chronic confusion) - Incentive spirometry every few hours at least if patient cooperative. (5) Lower extremity edema: Plan: - b/l LE edema, reports it is new over the past week or so. - Continue Lasix 20mg PO BID but will d/c if Cr or BUN rising - TTE with tricuspid regurgitation which may be contributing but most likely this is chronic. - BNP 46. - LFTs unremarkable - Cr normal and no protein in urine - US venous doppler - negative for DVT -Appears to have improved significantly with Lasix therefore will continue on 20 mg p.o. daily as this does not appear to be causing any side effects. (6) Depression: Plan: - Continue citalopram. (7) Diabetes mellitus: Plan: - Takes metformin 3x weekly, will hold while admitted and defer on Accu- Cheks/SSI as her presenting sugar was 84 and frequent glucose checks may agitate patient. (8) Hypothyroidism: Plan: - Continue levothyroxine. Plan - Continued admission to med/surg. Medically stable for discharge pending placement at this time. Will discuss with patient case manager to facilitate discharge - SCDs, Lovenox for VTE ppx. - Full Code. Admission and Anticipated Discharge Date Admission Date: May 02, 2022 Subjective pt has underlying delerium Was agitated yesterday more somnolent today Physical Exam Physical Exam: Cardiovascular S1-S2 heard normally Lungs bilateral air entry slightly decreased at bases Abdomen soft Extremity no edema Neuro no focal deficits somnolent Results & Data Results & Data ([facility]) Vital Signs (Past 12 Hours) Vital Signs Temp Pulse Resp BP Pulse Ox O2 Del Method 05/08/22 19:44 37.1 C 75 18 132/78 91 Room Air 05/08/22 16:59 36.8 C 91 H 20 131/83 94 Room Air 05/08/22 12:11 36.7 C 67 20 142/78 H 90 Room Air 05/08/22 09:58 36.6 C 73 18 135/80 93 Room Air PG Care Time/CCT Total # of Minutes Spent Total Time Spent with Patient: Total time spent is greater than 50% in coordination of care (as documented) at patient's floor/unit and/or counseling patient: Coding Level of Care Code 11808 Subseq Hosp Care Lvl 1 Diagnoses Toxic encephalopathy G92.9 Alzheimer's dementia G30.9; F02.80 Closed fracture of ramus of left pubis S32.592A Left rib fracture S22.32XA Lower extremity edema R60.0 Depression F32.9 Diabetes mellitus E11.9 Diabetes mellitus type: type 2 Diabetes mellitus buttermaker helper insulin use: without penitentiary use Diabetes mellitus complication status: without complication Hypothyroidism E03.9 Hypothyroidism type: acquired (1) Diabetes mellitus Diabetes mellitus type: type 2 Diabetes mellitus penitentiary insulin use: without penitentiary use Diabetes mellitus complication status: without complication Qualified Code(s): E11.9 - Type 2 diabetes mellitus without complications (2) Hypothyroidism Hypothyroidism type: acquired Qualified Code(s): E03.9 - Hypothyroidism, unspecified
[2022-05-09] MEDS ORDERED: INFLUENZA VACCINE HIGH DOSE PF 65+ 0.7 ML SYR IM ONE (08:00)
[2022-05-09] MEDS: MULTIVITAMIN TAB PO SCH (08:40)
[2022-05-09] MEDS: CITALOPRAM 40 MG TAB PO SCH (08:40)
[2022-05-09] MEDS: FUROSEMIDE 20 MG TAB PO SCH (08:40)
[2022-05-09] MEDS: CHOLECALCIFEROL 1,000 UNITS 25 MCG TAB PO SCH (08:40)
[2022-05-09] MEDS: LEVOTHYROXINE SODIUM 88 MCG TABLET PO SCH (08:40)
[2022-05-09] MEDS: CALCIUM CARBONATE 1250MG TAB PO SCH (08:40)
[2022-05-09] MEDS: ACETAMINOPHEN 500 MG TAB PO SCH (08:41)
[2022-05-09] MEDS: ATORVASTATIN 20 MG TAB PO SCH (08:41)
[2022-05-09] MEDS: metFORMIN HCL ER 500 MG TABCR PO SCH (08:41)
--- NOTE | 2022-05-09 19:34 | Discharge Summary ---
Date of Service May 09, 2022 Admission HPI Per Admitting Provider Michelle Pino is an 86-year-old female with a past medical history significant for dementia, hypothyroidism, depression, and diabetes is presenting today with her due to worsening mental status. She had a fall 10 days ago on 04/21 and was evaluated in our ED then. Imaging was notable for 6, 7, possibly eighth rib fracture on the left side, no pneumothorax. No other injuries and labs were stable, therefore patient was discharged home with tramadol for pain control. Since then she has been increasingly confused and combative, and feels that he can no longer care for her. There have been no new falls and patient is not complaining of any head or neck pain, fever/chills, chest pain, palpitations, shortness of breath, abdominal, nausea, vomiting. No history os able to be obtained as patient is severely confused, per has been her baseline recently. Upon presentation to the ED, her vital signs have been within normal limits and stable, BP on lower side. She has anemia of 11.7 which appears new from otherwise labs unremarkable, renal function at baseline, without electrolyte abnormalities or evidence of infection. TSH elevated at 7, however free T4 within normal limits. Urine does not appear infected, and she is negative for COVID. C-spine and head CT, as well as CXR and hip/pelvis x-ray obtained which were all unremarkable for acute fractures, subluxation or other acute process. Left rib fractures 5 through 7 are again noted, without pneumothorax. Principal Diagnosis Toxic encephalopathy Discharge Exam Cardiovascular S1-S2 heard normally Lungs bilateral air entry slightly decreased at bases Abdomen soft Extremity no edema Neuro no focal deficits somnolent Discharge Data Allergies Allergy/AdvReac Type Severity Reaction Status Date / Time No Known Drug Allergies Allergy Unknown Verified 05/01/22 17:39 Consultations 05/01/22 17:06 ED Decision to Admit Stat Ordered Studies 05/01/22 14:54 CT cervical spine wo con Stat CT head/brain wo con Stat 05/02/22 15:45 US venous doppler LE BI Routine 05/02/22 15:48 CT hip LT wo con Urgent Hospital Course (1) Toxic encephalopathy: Secondary to tramadol. Significant improvement since stopping this medication. Recommend chronically discontinuing lorazepam -she has not required this during her current admission. If needing something for agitation recommend Zyprexa in the outpatient setting. (2) Alzheimer's dementia: - Continue donepezil. - PT/OT, suspect need for placement - Case management consulted on admission for placement. - 11 sitter now discontinued although patient 's every night when her leaves. - Melatonin scheduled at night. - Zyprexa 2.5mg PO/IM for delirium if at risk to self or others XR feet tib/fib negative for fracture (3) Closed fracture of ramus of left pubis: Weight bear as tolerated PT/OT, discharge to inpatient physical rehabilitation (4) Left rib fracture: - Left ribs 5 through 7 fractures 10 days ago, seen again on imaging without evidence of pneumothorax. - Pain control: acetaminophen 1g TID, Toradol for breakthrough pain (trying to avoid opiates due to acute on chronic confusion) - Incentive spirometry every few hours at least if patient cooperative. (5) Lower extremity edema: - b/l LE edema, reports it is new over the past week or so. - Continue Lasix 20mg PO BID but will d/c if Cr or BUN rising - TTE with tricuspid regurgitation which may be contributing but most likely this is chronic. - BNP 46. - LFTs unremarkable - Cr normal and no protein in urine - US venous doppler - negative for DVT -Appears to have improved significantly with Lasix therefore will continue on 20 mg p.o. daily as this does not appear to be causing any side effects. (6) Depression: - Continue citalopram. (7) Diabetes mellitus: - Takes metformin 3x weekly, will hold while admitted and defer on Accu- Cheks/SSI as her presenting sugar was 84 and frequent glucose checks may agitate patient. (8) Hypothyroidism: - Continue levothyroxine. Plan - Patient discharged under 's care advised to follow-up with the PCP in 5 days Total Time Total Time Spent Total Time Spent (In Minutes): 40 Discharge Plan Discharge Items Patient Disposition: Home - Home Health Services Reason For Visit: FALL Discharge Diagnosis: toxic encephalopathy Activity: Per Instructions section Lifting: No more than 5 pounds and Wait until after follow-up appointment Bathing: No limitations Exercise/Sports: Rest today and Gradually increase as tolerated Non-emergency contact: Primary Care Provider, Therapist and Trash Hauler Call non-emergency contact if: your symptoms worsen Follow-up/Referrals: Marcos Richardson MD [Primary Care Provider] - Diet: Heart Healthy Addtl Attending Provider Instructions: F/u PCP Pending Studies at Discharge: No Stand-Alone Forms: My [facility], Smoking Cessation Medications and DC Order Prescriptions: Continued atorvastatin 20 mg tablet 20 mg PO DAILY Qty: 90 3RF levothyroxine 88 mcg tablet 88 mcg PO DAILY Qty: 90 3RF citalopram 40 mg tablet 40 mg PO DAILY Qty: 90 3RF lorazepam 0.5 mg tablet 0.5 mg PO DAILY PRN (Reason: anxiety) Qty: 90 0RF metformin 500 mg tablet extended release 24 hr 500 mg PO 3XWK Qty: 90 3RF nystatin [Nystop] 100,000 unit/gram powder 1 applic TOP BID PRN (Reason: Other) cholecalciferol (vitamin D3) 1,000 unit tablet 1,000 unit PO DAILY calcium carbonate 600 mg calcium (1,500 mg) tablet 1,500 mg PO DAILY donepezil 10 mg tablet 10 mg PO HS Rx Instructions: TAKE 1 TABLET BY MOUTH DAILY multivitamin Tablet 1 tab PO DAILY Discontinued tramadol [Ultram] 50 mg tablet 50 mg PO Q6H PRN (Reason: pain) Qty: 30 0RF Discharge Orders: Discharge Order (Routine); Ordered 05/09/22 Ordered By: Ang Kearns Admission Data Admit Date/Time: 05/02/22 18:47 Attending Provider: Ang Kearns Admit Provider: Vel Beck Primary Care Provider: Marcos Richardson Other Providers: Vel Beck ; [facility] ; [place] ; [facility] ; Stiven Oliva Other Interventions: Discharge Summary Assessment (RN) Last Done: 05/09/22 11:52 Coding Level of Care Code D/C DAY MANAGEMENT >30 MINS Diagnoses Toxic encephalopathy G92.9 Alzheimer's dementia G30.9; F02.80 Closed fracture of ramus of left pubis S32.592A Left rib fracture S22.32XA Lower extremity edema R60.0 Depression F32.9 Diabetes mellitus E11.9 Diabetes mellitus type: type 2 Diabetes mellitus long distance operator insulin use: without long distance operator use Diabetes mellitus complication status: without complication Hypothyroidism E03.9 Hypothyroidism type: acquired
== END 2022-05-09 13:24 | disposition home health service (06) | DRG 92 ==
LOC: ED 14:15 → EDINP 14:15 → SUATTDRO 17:29 → 3W 20:20 → SUATTDRO 05-02 18:47